=== PATIENT | female | born 1945 | race Caucasian/White ===

== ENCOUNTER → 2016-12-31 | Outpatient (CLI) | payer MEDICARE, BC ==
--- NOTE | 2016-12-31 15:33 | BD ---
EXAMINATION TYPE: MG DEXA axial skeleton. DATE OF EXAM: 12/31/2016 2:53 PM COMPARISON: not here CLINICAL HISTORY: age related osteoporosis. Postmenopausal female. Height: 5'2 Weight: 211 FRAX RISK QUESTIONS: Alcohol (3 or more units per day): no Family History (Parent hip fracture): no Glucocorticoids (More than 3mos): no (Ex: prednisone, prednisolone, methylprednisolone, dexamethasone, and hydrocortisone). History of Fracture in Adulthood: no Secondary Osteoporosis: 1. Type 1 Diabetes: no 2. Hyperthyroidism: no 3. Menopause before 45: yes 4. Malnutrition: no 5. Chronic liver disease: no Rheumatoid Arthritis: no Current Tobacco Use: no RISK FACTORS HISTORY OF: Surgery to Wrist (right/left): When: > 5 years ago Smoke tobacco: Active: Postmenopausal woman: Frequent falls: MEDICATIONS: Additional Medications: pain pills, blood pressure , cholesterol, Additional History: age related osteoporosis EXAM MEASUREMENTS: Bone mineral densitometry was performed using the Echelon System. Bone mineral density as measured about the Lumbar spine is: ----- L1-L4(G/cm2): 1.466 T Score Values are as follows: ----- L2: 2.5 ----- L3: 3.9 ----- L4: 2.3 ----- L1-L4: 2.4 Bone mineral density about the R hip (g/cm2): 0.845 Bone mineral density about the L hip (g/cm2): 0.806 T Score values are as follows: -----R Neck: -1.4 -----L Neck: -1.7 -----R Intertrochanter: -1.9 -----L Intertrochanter: -1.8 IMPRESSION: Osteopenia (T Score between -2.5 and -1 as noted by T score values: Rodger Hips There is slightly increased risk of fracture and the patient may be considered for treatment. Re-Screen 1-2 years. Bone density noted felt falsely elevated in the low back due to r eactive sclerosis at L2-L3 level. NOTE: T-SCORE=SD OF THE YOUNG ADULT MEAN.
--- NOTE | 2017-01-01 06:50 | MM ---
Reason for exam: screening (asymptomatic). Last mammogram was performed 15 years and 6 months ago. History: Patient is postmenopausal. Physical Findings: Nurse did not find any significant physical abnormalities on exam. MG 3D Screening Mammo W/Cad Bilateral CC and MLO view(s) were taken. No prior studies available for comparison. There are scattered fibroglandular densities. Finding: There are typically benign vascular, round calcifications in both breasts. There is a tiny chronic nodularity bilaterally. These results were verbally communicated with the patient and result sheet given to the patient on 12/31/16. ASSESSMENT: Benign, BI-RAD 2 RECOMMENDATION: Routine screening mammogram of both breasts in 1 year.
== END | disposition home or self-care (01) ==
LOC: RADMAMWWP 14:17
PROVIDERS: ATTEND Internal Medicine Geriatric Medicine
DX: Z12.31 Encounter for screening mammogram for malignant neoplasm of breast (principal); M81.0 Age-related osteoporosis without current pathological fracture; M85.88 Other specified disorders of bone density and structure, other site
CPT/HCPCS: 77080; 77063; G0202

== ENCOUNTER → 2017-06-11 | Outpatient (CLI) | payer MEDICARE, BC ==
[2017-06-11 12:18] LABS: Non-African American GFR(MDRD) 58 (>60 ml/min/1.73 sqM)
== END | disposition home or self-care (01) ==
LOC: LABWHC1 11:40
PROVIDERS: ATTEND Internal Medicine Geriatric Medicine
DX: Z01.812 Encounter for preprocedural laboratory examination (principal)
CPT/HCPCS: 36415; 82565

== ENCOUNTER → 2017-06-16 | Outpatient (CLI) | payer MEDICARE, BC ==
--- NOTE | 2017-06-17 01:55 | MR ---
EXAMINATION TYPE: MR lumbar spine wo/w con DATE OF EXAM: 06/16/2017 COMPARISON: 10/28/2015 HISTORY: loss of balance, pain, spinal stenosis TECHNIQUE: Multiplanar, multisequence images of the lumbar spine were acquired utilizing 10 mL intravenous Gadav ist gadolinium contrast. Lumbar vertebrae are fairly normal alignment. There is severe narrowing of the disc spaces throughout the lumbar spine. There is anterior and posterior endplate spur formation. There is developmentally adequate spinal canal and no bony spinal stenosis. No lumbar paraspinal mass. There is no compression fracture. There is heterogeneous signal pattern in the lumbar vertebral bodies consistent with varia ble fatty replacement. There is mild narrowing of the left side L5-S1 neural foramen. There is some h ypertrophic facet arthropathy throughout the lumbar spine. The contrast images show no pathologic enh ancement. There are very small posterior disc herniations throughout the lower thoracic and lumbar sp ine without significant encroachment on the neural elements. IMPRESSION: Multilevel spondylotic changes. No spinal stenosis. Multilevel facet arthropathy. No compression frac ture. No significant change compared to old exam.
== END | disposition home or self-care (01) ==
LOC: RADMRIMAIN 16:51
PROVIDERS: ATTEND Internal Medicine Geriatric Medicine
DX: M47.816 Spondylosis without myelopathy or radiculopathy, lumbar region (principal); M46.86 Other specified inflammatory spondylopathies, lumbar region
CPT/HCPCS: 72158; A9581

== ENCOUNTER → 2017-07-29 | Outpatient (CLI) | payer MEDICARE, BC ==
--- NOTE | 2017-07-29 13:22 | XR ---
EXAMINATION TYPE: XR ankle complete RT DATE OF EXAM: 07/29/2017 CLINICAL HISTORY: Ankle pain for 2 days TECHNIQUE: Frontal, lateral and oblique images of the right ankle are obtained. COMPARISON: None. FINDINGS: There is no acute fracture/dislocation evident in the right ankle. The ankle mortise appe ars within normal limits. The overlying soft tissue appears unremarkable. IMPRESSION: 1. No acute fracture. 2. Calcaneal heel spurs. 3. Follow-up exam can be performed 7-10 days from acute trauma for continued pain
--- NOTE | 2017-07-29 13:24 | XR ---
EXAMINATION TYPE: XR foot complete RT DATE OF EXAM: 07/29/2017 COMPARISON: NONE HISTORY: Pain TECHNIQUE: Three-view right foot FINDINGS: Soft tissue prominence over the proximal and mid lateral right no underlying fractures are identified. Remaining soft tissues are normal. Joint spaces are preserved. Calcaneal heel spurs are p resent. Follow-up exams can be performed 7-10 days acute trauma for continued pain. IMPRESSION: 1. No acute osseous abnormality. 2. Soft tissue swelling lateral right foot and proximal foot
== END ==
LOC: RADXRMAIN 12:47
PROVIDERS: ATTEND Internal Medicine Geriatric Medicine
DX: M77.31 Calcaneal spur, right foot (principal); M79.89 Other specified soft tissue disorders

== ENCOUNTER → 2017-12-16 | Outpatient (CLI) | payer MEDICARE, BC ==
--- NOTE | 2017-12-17 08:40 | XR ---
EXAMINATION TYPE: XR chest 2V DATE OF EXAM: 12/16/2017 COMPARISON: 08/02/2015 HISTORY: Cough and congestion TECHNIQUE: Frontal and lateral views of the chest are obtained. FINDINGS: There is no focal air space opacity, pleural effusion, or pneumothorax seen. There is per sistent right hemidiaphragm elevation unchanged from the prior of 2014. The cardiac silhouette size i s within normal limits. The osseous structures are intact. Mild multilevel degenerative changes of the thoracic spine are noted. Cholecystectomy clips are noted within the right upper quadrant. IMPRESSION: Chronic right hemidiaphragm elevation with no acute cardiopulmonary process.
== END | disposition home or self-care (01) ==
LOC: RADXRMAIN 17:06
PROVIDERS: ATTEND Internal Medicine Geriatric Medicine
DX: J98.6 Disorders of diaphragm (principal)
CPT/HCPCS: 71046

== ENCOUNTER 2019-10-10 10:12 | Emergency (ER) | payer OTHER, MEDICARE, BC ==
[2019-10-10 10:35] VITALS: TEMP 97.6
[2019-10-10] MEDS ORDERED: ATENOLOL 50 MG TAB PO STA (10:55)
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
[2019-10-10 12:38] VITALS: BP 190/98
[2019-10-10] MEDS ORDERED: ATENOLOL 12.5 MG TAB PO STA (12:53)
[2019-10-10 13:32] VITALS: PULSE 74; RESP 18
== END 2019-10-10 13:32 | disposition home or self-care (01) ==
LOC: EC 10:12
DX: Z04.1 Encounter for examination and observation following transport accident (principal); I10 Essential (primary) hypertension; E78.5 Hyperlipidemia, unspecified; Z79.899 Other long term (current) drug therapy; Z53.29 Procedure and treatment not carried out because of patient's decision for other reasons; V89.2XXA Person injured in unspecified motor-vehicle accident, traffic, initial encounter; Y92.89 Other specified places as the place of occurrence of the external cause
CPT/HCPCS: 99284

== ENCOUNTER 2020-03-31 16:24 | Inpatient (IN) | payer MEDICARE, BC ==
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
[2020-03-31 17:16] LABS: Basophils % (A) 0 %; Eosinophils % (A) 0 %; HCT 42.5 % (34.0-46.0); HGB 13.3 gm/dL (11.4-16.0); Hypochromasia Slight; Lymphocytes # (A) 1.3 k/uL (1.0-4.8); Lymphocytes % (A) 14 %; MCH 31.1 pg (25.0-35.0); MCHC 31.3 g/dL (31.0-37.0); MCV 99.4 fL (80.0-100.0); Mean Platelet Volume 9.2; Monocytes # (A) 0.4 k/uL (0-1.0); Monocytes % (A) 4 %; Neutrophils # (A) 7.8 k/uL (1.3-7.7); Neutrophils % (A) 81 %; Platelet Count 229 k/uL (150-450); RBC 4.28 m/uL (3.80-5.40); WBC 9.6 k/uL (3.8-10.6)
[2020-03-31 17:29] LABS: African American GFR (CKD) 58 (>60 ml/min/1.73 sqM); Alcohol <10 mg/dL; Anion Gap 13 mmol/L; Blood Urea Nitrogen 26 mg/dL (7-17); Calcium 10.3 mg/dL (8.4-10.2); Carbon Dioxide 19 mmol/L (22-30); Chloride 109 mmol/L (98-107); Glucose 173 mg/dL (74-99); Non-African American GFR(CKD) 50 (>60 ml/min/1.73 sqM); Potassium 3.9 mmol/L (3.5-5.1); Salicylate 8.6 mg/dL; Sodium 141 mmol/L (137-145)
[2020-03-31 17:54] LABS: Bacteria,Urine Rare /hpf; Hyaline Casts,Urine 106 /lpf (0-2); Mucus,Urine Rare /hpf; RBC,Urine 7 /hpf (0-5); Squamous Epithelial Cell,Urine <1 /hpf (0-4); WBC,Urine 2 /hpf (0-5)
[2020-03-31 18:03] LABS: Amphetamine Screen,Urine Not Detected (NotDetected); Barbiturate Screen,Urine Not Detected (NotDetected); Benzodiazepines Screen,Urine Detected (NotDetected); Cocaine Screen,Urine Not Detected (NotDetected); Color,Urine Yellow; Methadone Screen, Urine Not Detected (NotDetected); Opiate Screen,Urine Detected (NotDetected); Oxycodone Screen, Urine Detected (NotDetected); Phencyclidine Screen,Urine Not Detected (NotDetected); Tricyclic Antidepressant,Urine Not Detected (NotDetected); Urn Cannabinoid Scrn Not Detected (NotDetected)
[2020-03-31 18:04] LABS: Total Bilirubin 0.3 mg/dL (0.2-1.3)
[2020-03-31 18:04] LABS: Appearance,Urine Clear (Clear); Bilirubin,Urine 1+ (Negative); Glucose,Urine (UA) Negative (Negative); Ketones,Urine Negative (Negative); Protein,Urine 1+ (Negative); Specific Gravity,Urine 1.035 (1.001-1.035)
[2020-03-31 18:05] LABS: Blood,Urine Negative (Negative); Leukocyte Esterase,Urine Negative (Negative); Nitrite,Urine Negative (Negative); Urobilinogen,Urine <2.0 mg/dL (<2.0)
[2020-03-31 18:20] LABS: Prothrombin Time 10.3 sec (9.0-12.0)
[2020-03-31 18:24] LABS: Partial Thromboplastin Time 21.1 sec (22.0-30.0)
[2020-03-31] MEDS ORDERED: NALOXONE 0.4 MG/ML 1 ML VIAL IV PRN (18:25)
[2020-03-31] MEDS ORDERED: ACETYLCYSTEINE 6,000 MG/30 ML VIAL PO ONE (18:30)
[2020-03-31] MEDS: SODIUM CHLORIDE 0.9% 1,000 ML IV SCH (18:45)
[2020-03-31] MEDS: ACETYLCYSTEINE 6,000 MG/30 ML VIAL PO SCH (22:17)
[2020-04-01] MEDS: ACETYLCYSTEINE 6,000 MG/30 ML VIAL PO SCH ×6 (03:00→22:36)
[2020-04-01 06:11] LABS: Basophils % (A) 0 %; Eosinophils # (A) 0.1 k/uL (0-0.7); Eosinophils % (A) 0 %; HCT 39.3 % (34.0-46.0); HGB 12.7 gm/dL (11.4-16.0); Hypochromasia Slight; Lymphocytes # (A) 1.3 k/uL (1.0-4.8); Lymphocytes % (A) 13 %; MCH 32.2 pg (25.0-35.0); MCHC 32.3 g/dL (31.0-37.0); MCV 99.5 fL (80.0-100.0); Mean Platelet Volume 8.5; Monocytes # (A) 0.6 k/uL (0-1.0); Monocytes % (A) 6 %; Neutrophils # (A) 8.2 k/uL (1.3-7.7); Neutrophils % (A) 80 %; Platelet Count 232 k/uL (150-450); RBC 3.95 m/uL (3.80-5.40); WBC 10.3 k/uL (3.8-10.6)
[2020-04-01 06:22] LABS: INR 1.1 (<1.2); Prothrombin Time 11.3 sec (9.0-12.0)
[2020-04-01 06:25] LABS: Albumin 3.7 g/dL (3.5-5.0); Calcium 9.9 mg/dL (8.4-10.2); Potassium 3.7 mmol/L (3.5-5.1); Total Bilirubin 0.4 mg/dL (0.2-1.3); Total Protein 6.6 g/dL (6.3-8.2)
[2020-04-01] MEDS: SODIUM CHLORIDE 0.9% 1,000 ML IV SCH ×2 (06:30→22:38)
[2020-04-01] MEDS: METOPROLOL TARTRATE 50 MG TAB PO SCH ×2 (08:38→22:28)
[2020-04-01] MEDS: LISINOPRIL 10 MG TAB PO SCH ×2 (08:39→22:28)
[2020-04-01] MEDS: amLODIPine 5 MG TAB PO SCH (08:39)
[2020-04-01] MEDS: APIXABAN 5 MG TAB PO SCH ×2 (08:43→22:27)
[2020-04-01] MEDS ORDERED: PANTOPRAZOLE 40 MG/10 ML VIAL IVP SCH (09:00)
[2020-04-01] MEDS: ONDANSETRON 4 MG/2 ML VIAL IVP PRN ×2 (09:21→19:55)
--- NOTE | 2020-04-01 11:23 | P.HPIM ---
History of Present Illness H&P Date: 04/01/20 Chief Complaint: depression History of Present Illness This is a 74-year-old female one of Dr. Morales with a previous medical history significant for hypertension and hypertensive cardiovascular disease, hyperlipidemia, acute ischemic cerebral vascular accident in the distribution of the right middle cerebral artery with left-sided weakness status post tPA, with almost complete resolution of the symptoms in October 2019. During that hospitalization, she also developed new onset atrial fibrillation and started on eliquis. Patient states that she took pills. She took greater than 15 Tylenol tablets. She states she was hoping that she would fall asleep and not wake up. She states I can't take it anymore. At this time she states she was not suicidal but was yesterday. She called for help and was brought into the hospital for evaluation. Patient does state that her family abandoned her and took everything that she had. She does not have power of attorney recruiter or guardian. Vital signs were stable, EKG sinus rhythm. Sodium 141, potassium 3.9, chloride 109, CO2 19. Initial total bilirubin 0.3, AST 42, ALT 38, alkaline phosphatase 90. Salicylate level 8.6, acetaminophen level 169 serum alcohol level less than 10. Urine drug screen detected opiates, oxycodone, benzodiazepines. Urinalysis was clear with nitrate and leukoesterase negative. Patient was given 1 dose of Mucomyst [facility] air tool operator is at the bedside. Consult in place for psychiatry. Patient does have a history of divorce from her approximate 4 years ago and has not had a relationship with her children since that time. Review of Systems Constitutional: No fever, no chills, no night sweats. No weight change. No weakness, fatigue or lethargy. No daytime sleepiness. EENT: No headache. No blurred vision or double vision, no loss of vision. No loss of Hearing, no ringing in the ears, no dizziness. No nasal drainage or congestion. No epistaxis. No sore throat. Lungs: No shortness of breath, cough, no sputum production. No wheezing. Cardiovascular: No chest pain, no lower extremity edema. No palpitations. No paroxysmal nocturnal dyspnea. No orthopnea. No lightheadedness or dizziness. No syncopal episodes. Abdominal: No abdominal pain. No nausea, vomiting. No diarrhea. No constipation. No bloody or tarry stools.. No loss of appetite. Genitourinary: No dysuria, increased frequency, urgency. No urinary retention. Musculoskeletal: No myalgias. No muscle weakness, no gait dysfunction, no frequent falls. No back pain. No neck pain. Integumentary: No wounds, no lesions. No rash or pruritus. No unusual br uising. No change in hair or nails. Neurologic: No aphasia. No facial droop. No change in mentation. No head injury. No headache. No paralysis. No paresthesia. Psychiatric: Reports depression. No anxiety. No mood swings. Denies cyanosis vital ideation at the time of evaluation. Endocrine: No abnormal blood sugars. No weight change. No excessive sweating or thirst. No cold intolerance. Physical Examination Gen: This is a 74-year-old female. She is resting in bed and appears to be comfortable, no acute distress. air tool operator is at bedside HEENT: Head is atraumatic, normocephalic. Pupils equal, round. Sclerae is anicteric. NECK: Supple. No JVD. No lymphadenopathy. No thyromegaly. LUNGS: Clear to auscultation. No wheezes or rhonchi. No intercostal retractions. HEART: Regular rate and rhythm. No murmur. ABDOMEN: Soft. Bowel sounds are present. No masses. No tenderness. EXTREMITIES: No pedal edema. No calf tenderness. NEUROLOGICAL: Patient is awake, alert and oriented x3. Cranial nerves 2 through 12 are grossly intact. Assessment and Plan 1. Recurrent depression with suicide attempt. Continue safety companion, psychiatry consult, social work consult for discharge planning. Patient may require geriatric psych unit. 2. Tylenol overdose with mild elevation in liver function tests. She is status post 1 dose of Mucomyst. Consult with GI, monitor liver tests. Hold statin for now. 3. History of acute ischemic CVA, stable. Continue eliquis. 4. Hypertension hypertensive cardiovascular disease. Continue Lopressor 50 mg twice daily, lisinopril 10 mg twice daily, Norvasc 5 mg daily. 5. Paroxysmal atrial fibrillation. Continue eliquis 5 mg twice daily, Lopressor 50 mg twice daily. 6. Gastroesophageal reflux disease. Continue Protonix. 7. DVT prophylaxis. Eliquis. 8. COVID-19 infection not present. Patient will be admitted to the hospital for a minimum of 2 night stay. Discharge plan: Transfer to mental health unit or geriatric psychiatric Center. Continue safety center. Impression and plan of care have been directed as dictated by the signing physician. Elsy Spangler nurse practitioner acting as scribe for signing physician. Past Medical History Past Medical History: CVA/TIA, Hyperlipidemia, Hypertension History of Any Multi-Drug Resistant Organisms: None Reported Past Surgical History: Appendectomy, Back Surgery, Cholecystectomy, Orthopedic Surgery Additional Past Surgical History / Comment(s): Bilateral knee replacement. Past Anesthesia/Blood Transfusion Reactions: No Reported Reaction Past Psychological History: No Psychological Hx Reported, Depression Additional Psychological History / Comment(s): No past history of depression however pt currently admitted for suicide attempt. Smoking Status: Never smoker Past Alcohol Use History: None Reported Past Drug Use History: None Reported - Past Family History Mother Family Medical History: No Reported History Additional Family Medical History / Comment(s): Mother at age 85 from old age. Father Family Medical History: Myocardial Infarction (MO) Additional Family Medical History / Comment(s): Father at age 59 from myocardial infarction. Brother(s) Family Medical History: No Reported History Additional Family Medical History / Comment(s): Patient has a brother with history of back surgery. Sister(s) Family Medical History: Osteoarthritis (OA) Additional Family Medical History / Comment(s): Patient has one sister with osteoarthritis. Patient does not claim any children because they stole things from her divorce her from her while she was at extended care facility last year. Medications and Allergies Home Medications Medication Instructions Recorded Confirmed Type Pravastatin Sodium [Pravachol] 40 mg PO DAILY 08/02/15 03/31/20 History Apixaban [Eliquis] 5 mg PO BID #60 tab 10/23/19 03/31/20 Rx Lisinopril [Zestril] 10 mg PO BID #60 tab 10/23/19 03/31/20 Rx amLODIPine [Norvasc] 5 mg PO DAILY #30 tab 10/23/19 03/31/20 Rx Metoprolol Tartrate [Lopressor] 50 mg PO BID 03/31/20 03/31/20 History Allergies Allergy/AdvReac Type Severity Reaction Status Date / Time adhesive tape Allergy Rash/Hives Verified 03/31/20 19:47 Physical Exam Vitals: Vital Signs Temp Pulse Pulse Resp BP BP Pulse Ox 04/01/20 05:00 97.8 F 69 18 169/82 99 04/01/20 01:52 89 139/66 97 03/31/20 20:45 97.1 F L 73 18 120/53 96 03/31/20 19:00 72 16 120/63 95 03/31/20 18:38 70 16 104/47 95 03/31/20 17:38 67 16 117/48 95 03/31/20 16:38 16 95 03/31/20 16:31 97.9 F 74 20 123/58 95 Intake and Output 03/31/20 04/01/20 04/01/20 22:59 06:59 14:59 Intake Total 0 200 Output Total 200 Balance 0 0 Intake: Oral 0 200 Output: Emesis 200 Other: # Voids 0 1 Weight 82 kg Results CBC & Chem 7: 04/01/20 05:56 04/01/20 05:56 Labs: Abnormal Lab Results - Last 24 Hours (Table) 03/31/20 03/31/20 03/31/20 Range/Units 16:40 16:40 16:40 Neutrophils # 7.8 H (1.3-7.7) k/uL APTT 21.1 L (22.0-30.0) sec Chloride 109 H (98-107) mmol/L Carbon Dioxide 19 L (22-30) mmol/L BUN 26 H (7-17) mg/dL Creatinine 1.10 H (0.52-1.04) mg/dL Glucose 173 H (74-99) mg/dL Calcium 10.3 H (8.4-10.2) mg/dL AST (14-36) U/L ALT (4-34) U/L Urine Bilirubin (Negative) Urine RBC (0-5) /hpf Urine Bacteria (None) /hpf Hyaline Casts (0-2) /lpf Urine Mucus (None) /hpf Urine Opiates Screen (NotDetected) Ur Oxycodone Screen (NotDetected) Acetaminophen 169.0 H* ug/mL U Benzodiazepines Scrn (NotDetected) 03/31/20 03/31/20 04/01/20 Range/Units 16:40 17:00 05:56 Neutrophils # (1.3-7.7) k/uL APTT (22.0-30.0) sec Chloride 111 H (98-107) mmol/L Carbon Dioxide (22-30) mmol/L BUN 29 H (7-17) mg/dL Creatinine (0.52-1.04) mg/dL Glucose 122 H (74-99) mg/dL Calcium (8.4-10.2) mg/dL AST 42 H (14-36) U/L ALT 38 H 42 H (4-34) U/L Urine Bilirubin 1+ H (Negative) Urine RBC 7 H (0-5) /hpf Urine Bacteria Rare H (None) /hpf Hyaline Casts 106 H (0-2) /lpf Urine Mucus Rare H (None) /hpf Urine Opiates Screen Detected H (NotDetected) Ur Oxycodone Screen Detected H (NotDetected) Acetaminophen ug/mL U Benzodiazepines Scrn Detected H (NotDetected) 04/01/20 Range/Units 05:56 Neutrophils # 8.2 H (1.3-7.7) k/uL APTT (22.0-30.0) sec Chloride (98-107) mmol/L Carbon Dioxide (22-30) mmol/L BUN (7-17) mg/dL Creatinine (0.52-1.04) mg/dL Glucose (74-99) mg/dL Calcium (8.4-10.2) mg/dL AST (14-36) U/L ALT (4-34) U/L Urine Bilirubin (Negative) Urine RBC (0-5) /hpf Urine Bacteria (None) /hpf Hyaline Casts (0-2) /lpf Urine Mucus (None) /hpf Urine Opiates Screen (NotDetected) Ur Oxycodone Screen (NotDetected) Acetaminophen ug/mL U Benzodiazepines Scrn (NotDetected) Thrombosis Risk Factor Assmnt - DVT/VTE Prophylaxis DVT/VTE Prophylaxis: Pharmacologic Prophylaxis ordered - Choose All That Apply Any of the Below Risk Factors Present?: Yes Each Factor Represents 1 point: Acute MO Each Risk Factor Represents 2 Points: Age 61-74 years Other congenital or acquired thrombophilia - If yes, enter type in comment: No Thrombosis Risk Factor Assessment Total Risk Factor Score: 3 Thrombosis Risk Factor Assessment Level: Moderate Risk
[2020-04-01] MEDS ORDERED: MELATONIN 5 MG TABLET PO PRN (13:56)
--- NOTE | 2020-04-01 13:56 | P.CN ---
Psychiatric Consult - . Consult date: 04/01/20 Consult:: 04/01/20 13:49 IDENTIFYING DATA: This patient is a 73-year-old female currently lives alone in a house is has 2 kids were strangers to her and collects Social Security. HISTORY OF PRESENT ILLNESS: The patient presented to the hospital through the ER with complaints of depression and suicidal thoughts. Patient did endorse poor sleep as well. She later on admitted in the emergency room that she had taken "extra pills" in the morning and stated there is approximately 15 [place] tablets. Patient's acetaminophen level was 169, UDS was positive for opiates, oxycodone and benzodiazepines and patient also had elevated creatinine and LFTs initially however have been improving since admission. Psychiatry is consulted for overdose. Patient was seen lying down in the bed with a sitter at her side and was agreeable to speak to health underwriter. Patient states that "everything came crashing down on me" and spoke about feeling overwhelmed with several things going on in her life. She states that "I did a stupid thing" referring to her suicide attempt. She states that she made a "deal with God" about saving a child who got Mathis virus and trading their life in for hers. She claims that she overdosed on the medications and laid down to go to sleep however soon after called 911. She states that she has been dealing with stressors including getting a message from the [employer] about possible fraud, spoke about financial stressors about her "messing up my checking account and getting lots of bills". She also spoke about having a poor relationship with her kids and also her who filed for divorce 2 years ago. She states that "my family has thrown me away". She endorsed significant depression and anxiety. She states that she has poor sleep and only sleeps "minutes at a time". She admits to poor appetite and fair concentration and guilt. At this time patient denies any suicidal or homical ideations, intent or plan. Patient denies any auditory, visual hallucinations and denies any paranoia or delusions. Patients admits to using no recreational drugs and denies any cigarette use. PAST PSYCHIATRIC HISTORY: Patient has a a history of in an anxiety. Patient denies being on any psychiatric medications. Patient denies any previous psychiatric hospitalizations. Patient denies any psychiatric outpatient follow- up. Patient denies any history of suicide attempts in the past. PAST MEDICAL HISTORY: CVA/TIA, hyperlipidemia, hypertension.. ALLERGIES: as per EMR. CHEMICAL DEPENDENCY HISTORY: as per HPI. FAMILY PSYCHIATRIC/SUBSTANCE USE HISTORY: denies SOCIAL HISTORY: Patient was born and raised in [facility] and claims that she completed high school and did some college taking business classes. 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 She states that she has 2 kids were strangers to her is currently and lives in a house alone and collects Social Security. MENTAL STATUS EXAM: General Appearance: Patient appears to be stated age is alert, argumentative yet attempts to cooperate. Patient appears to have fair hygiene and grooming wearing hospital gown with poor eye contact. Behavior: Patient is calmly lying in bed without any agitated behavior. Argumentative yet attempts to cooperate. Speech: Patient's speech is fluent and nonpressured. Soft tone. Mood/Affect: Patient reports their mood is "depressed and anxious", affect is congruent Suicidality/Homicidality: Patient denies having any suicidal or homicidal ideation intent or plan. Perceptions: Patient denies any visual hallucinations and denies any auditory hallucinations Though content/process: There is no evidence of any delusional thought content and thought process is linear and goal-directed. Rambles at times. Memory and concentration: AOX3, grossly intact for the purposes of this session. Can spell "WORLD" backwards Judgment and insight: poor IMPRESSIONS: Major depressive disorder, without psychotic features Anxiety disorder unspecified PLAN: -At this time patient DOES meet criteria for inpatient psychiatric admission. -Would recommend the following medication changes/additions: Patient is agreeable to start Lexapro 5 mg daily for mood/anxiety, Remeron 7.5 mg daily at bedtime for mood/appetite/sleep. We'll consider adding on melatonin if needed. -Continue 1:1 sitter for safety -Cannot leave AMA at this time. Patient will need a petition and certification if attempting to leave AMA. -Will continue to follow along -When medically stable, patient is eligible for transfer to a [facility] psych bed when available. chore worker to look into transfer at this time. -Please contact with any questions. Discussed this plan with patient's nurse.
[2020-04-01] MEDS: ESCITALOPRAM 5 MG TAB PO SCH (18:19)
[2020-04-01 19:03] LABS: Albumin 3.8 g/dL (3.5-5.0); Calcium 9.7 mg/dL (8.4-10.2); Potassium 3.4 mmol/L (3.5-5.1); Total Bilirubin 0.4 mg/dL (0.2-1.3); Total Protein 6.6 g/dL (6.3-8.2)
[2020-04-01] MEDS ORDERED: MIRTAZAPINE 15 MG TAB PO SCH (21:00)
[2020-04-01] MEDS: PANTOPRAZOLE 40 MG TABLET PO SCH (22:28)
--- NOTE | 2020-04-02 01:28 | CONS ---
CONSULTATION DATE OF DICTATION: 04/01/2020 REASON FOR CONSULTATION: Tylenol overdose. HISTORY OF PRESENT ILLNESS: The patient is a 74-year-old pleasant white female with history of hypertension, hyperlipidemia, CVA in the past with left-sided weakness, was hospitalized because of acute Tylenol overdose. She took approximately 15 to 20 [place] tablets as she was feeling somewhat depressed and suicidal. She was brought to the emergency room and her Tylenol level, acetaminophen level was 116. She was started on Mucomyst. The serum transaminases at the time of admission to the hospital were within normal limits. The patient denies any prior history of chronic liver disease. No history of jaundice or hepatitis in the past. No history of alcohol abuse. She denies any abdominal pain. No nausea, vomiting. On a regular diet tolerating well. Psychiatry has been consulted because of depression. PAST MEDICAL HISTORY: Her past medical history is significant for hypertension, hyperlipidemia, atrial fibrillation on Eliquis, history of CVA in October of 2019, recovered well with no deficits. PAST SURGICAL HISTORY: Appendectomy, back surgery, cholecystectomy, bilateral knee replacement. MEDICATIONS: Medications at home include Pravachol, Eliquis, Zestril, Norvasc, and Lopressor. ALLERGIES: None. SOCIAL HISTORY: No smoking. No alcohol use. FAMILY HISTORY: Sister has osteoarthritis. Mother of old age and father had coronary artery disease. REVIEW OF SYSTEMS: CARDIOPULMONARY: She denies any chest pain or shortness of breath. GENITOURINARY: No dysuria or hematuria. MUSCULOSKELETAL: Unremarkable. SKIN: Unremarkable. ENDOCRINE: Unremarkable. PSYCHIATRIC: Depression. Psychiatry has been consulted. NEUROLOGY: History of stroke in October of 2019 with no residual deficits. ENT/VISION: Unremarkable. CONSTITUTIONAL: No recent weight loss. No fever, chills, night sweats. GI: As mentioned above. PHYSICAL EXAMINATION: She appears comfortable. No apparent distress. Vital signs are stable. Blood pressure 119/63, pulse rate 59, temperature 98.4. HEENT EXAMINATION: Unremarkable. Conjunctivae pink. Sclerae anicteric. Oral cavity no lesions. NECK: No JVD or lymph node enlargement. CHEST: Clear to auscultation. HEART: Regular rate and rhythm. ABDOMEN: Soft. Bowel sounds are positive. No organomegaly. EXTREMITIES: No pedal edema. SKIN: No rashes. NEUROLOGIC: Alert and oriented x3. No focal deficits. LABS: WBC 10.3, hemoglobin 12.7, platelets normal. Basic metabolic panel is within normal limits. AST and ALT yesterday were 42 and 38 respectively. This morning they were 115 and 97 respectively. T-bilirubin and alkaline phosphatase are within normal limits. INR is 1.1. BUN and creatinine at 25 and 0.82, respectively. Serum acetaminophen level was 169 and repeat acetaminophen level is 108. IMPRESSION: 1. Acute acetaminophen overdose. The patient has taken at least 20 to 30 tablets of [place] yesterday. Her serum acetaminophen level at the time of admission to the hospital was 169, was started on oral Mucomyst. Acetaminophen level has dropped to 108 this morning. 2. Mild elevation of serum transaminases at the time of admission to the hospital which are slightly increased today. INR is normal. No evidence of coagulopathy. 3. History of cerebrovascular accident in October of 2019. 4. History of atrial fibrillation on Eliquis. 5. History of anxiety, depression. RECOMMENDATION: 1. Monitor LFTs q.12 hours including INR. 2. Continue oral Mucomyst. 3. Agree with psychiatric consultation. 4. Repeat labs in the morning. We will follow with you closely. Thank you for this consultation. MMODL / IJN: [id number] /
[2020-04-02] MEDS: ACETYLCYSTEINE 6,000 MG/30 ML VIAL PO SCH ×5 (02:56→20:56)
[2020-04-02] MEDS ORDERED: PANTOPRAZOLE 40 MG TABLET PO SCH (07:30)
[2020-04-02 08:12] LABS: ALT 543 U/L (4-34); AST 547 U/L (14-36); Acetaminophen <10.0 ug/mL; African American GFR (CKD) 69 (>60 ml/min/1.73 sqM); Albumin 3.1 g/dL (3.5-5.0); Alkaline Phosphatase 82 U/L (38-126); Anion Gap 7 mmol/L; Blood Urea Nitrogen 23 mg/dL (7-17); Calcium 9.6 mg/dL (8.4-10.2); Carbon Dioxide 22 mmol/L (22-30); Chloride 110 mmol/L (98-107); Glucose 90 mg/dL (74-99); Non-African American GFR(CKD) 60 (>60 ml/min/1.73 sqM); Potassium 3.6 mmol/L (3.5-5.1); Sodium 139 mmol/L (137-145); Total Protein 5.9 g/dL (6.3-8.2)
[2020-04-02] MEDS: PANTOPRAZOLE 40 MG TABLET PO SCH (09:45)
[2020-04-02] MEDS: ESCITALOPRAM 5 MG TAB PO SCH (09:45)
[2020-04-02] MEDS: METOPROLOL TARTRATE 50 MG TAB PO SCH ×2 (09:45→20:46)
[2020-04-02] MEDS: LISINOPRIL 10 MG TAB PO SCH ×2 (09:45→20:46)
[2020-04-02] MEDS: APIXABAN 5 MG TAB PO SCH ×2 (09:45→20:46)
[2020-04-02] MEDS: amLODIPine 5 MG TAB PO SCH (09:45)
--- NOTE | 2020-04-02 12:20 | P.PN ---
Subjective Progress Note Date: 04/02/20 This is a 74-year-old female one of Dr. Morales with a previous medical history significant for hypertension and hypertensive cardiovascular disease, hyperlipidemia, acute ischemic cerebral vascular accident in the distribution of the right middle cerebral artery with left-sided weakness status post tPA, with almost complete resolution of the symptoms in October 2019. During that hospitalization, she also developed new onset atrial fibrillation and started on eliquis. Patient states that she took pills. She took greater than 15 Tylenol tablets. She states she was hoping that she would fall asleep and not wake up. She states I can't take it anymore. At this time she states she was not suicidal but was yesterday. She called for help and was brought into the hospital for evaluation. Patient does state that her family abandoned her and took everything that she had. She does not have power of prosecuting attorney or guardian. Vital signs were stable, EKG sinus rhythm. Sodium 141, potassium 3.9, chloride 109, CO2 19. Initial total bilirubin 0.3, AST 42, ALT 38, alkaline phosphatase 90. Salicylate level 8.6, acetaminophen level 169 serum alcohol level less than 10. Urine drug screen detected opiates, oxycodone, benzodiazepines. Urinalysis was clear with nitrate and leukoesterase negative. Patient was given 1 dose of Mucomyst and [facility]. parts sales representative is at the bedside. Consult in place for psychiatry. Patient does have a history of divorce from her approximate 4 years ago and has not had a relationship with her children since that time. 04/02: The patient has been seen by psychiatry with recommendations for geriatric inpatient and social work is following for this. Patient is to be continued on senior safety management consultant. Patient cannot leave AMA and will need a petition insert is attempting to leave AMA. Patient denies any new complaints today. She does have elevation of her liver function tests with total bilirubin 1, AST 547, ALT 543, alkaline phosphatase 82. Repeat acetaminophen level this morning is less than 10. Patient has also been seen by GI with plan to continue to monitor liver function tests including INR, continue oral Mucomyst which we have discontinued this morning due to Tylenol level being normal. Anticipate patient may be ready for discharge and [facility]. Patient has been afebrile, heart rate 59, blood pressure 96/56, pulse ox 95% on room air. Review of Systems Constitutional: No fever, no chills, no night sweats. No weight change. No weakness, fatigue or lethargy. No daytime sleepiness. Patient more cooperative today. EENT: No headache. No blurred vision or double vision, no loss of vision. No loss of Hearing, no ringing in the ears, no dizziness. No nasal drainage or congestion. No epistaxis. No sore throat. Lungs: No shortness of breath, cough, no sputum production. No wheezing. Cardiovascular: No chest pain, no lower extremity edema. No palpitations. No paroxysmal nocturnal dyspnea. No orthopnea. No lightheadedness or dizziness. No syncopal episodes. Abdominal: No abdominal pain. No nausea, vomiting. No diarrhea. No constipation. No bloody or tarry stools.. No loss of appetite. Genitourinary: No dysuria, increased frequency, urgency. No urinary retention. Musculoskeletal: No myalgias. No muscle weakness, no gait dysfunction, no frequent falls. No back pain. No neck pain. Integumentary: No wounds, no lesions. No rash or pruritus. No unusual bruising. No change in hair or nails. Neurologic: No aphasia. No facial droop. No change in mentation. No head injury. No headache. No paralysis. No paresthesia. Psychiatric: Reports depression. No anxiety. No mood swings. Denies cyanosis vital ideation at the time of evaluation. Endocrine: No abnormal blood sugars. No weight change. No excessive sweating or thirst. No cold intolerance. Physical Examination Gen: This is a 74-year-old female. She is resting in bed and appears to be comfortable, no acute distress. parts sales representative is at bedside HEENT: Head is atraumatic, normocephalic. Pupils equal, round. Sclerae is anicteric. NECK: Supple. No JVD. No lymphadenopathy. No thyromegaly. LUNGS: Clear to auscultation. No wheezes or rhonchi. No intercostal retractions. HEART: Regular rate and rhythm. No murmur. ABDOMEN: Soft. Bowel sounds are present. No masses. No tenderness. EXTREMITIES: No pedal edema. No calf tenderness. NEUROLOGICAL: Patient is awake, alert and oriented x3. Cranial nerves 2 through 12 are grossly intact. Assessment and Plan 1. Recurrent depression with suicide attempt. Continue senior safety management consultant, psychiatry consult appreciated, social work consult for discharge planning to [facility]. 2. Tylenol overdose with elevation in liver function tests. Mucomyst discontinued this morning. Consult with GI appreciated, monitor liver tests. Hold statin for now. 3. History of acute ischemic CVA, stable. Continue eliquis. 4. Hypertension hypertensive cardiovascular disease. Continue Lopressor 50 mg twice daily, lisinopril 10 mg twice daily, Norvasc 5 mg daily. 5. Paroxysmal atrial fibrillation. Continue eliquis 5 mg twice daily, Lopressor 50 mg twice daily. 6. Gastroesophageal reflux disease. Continue Protonix. 7. DVT prophylaxis. Eliquis. 8. COVID-19 infection not present. Discharge plan: Transfer to [facility]iatric [facility]. Continue senior safety management consultant. Impression and plan of care have been directed as dictated by the signing physician. Elsy Spangler nurse practitioner acting as scribe for signing physician. Objective - Vital Signs Vital signs: Vital Signs Temp 99.1 F 04/02/20 05:00 Pulse 59 L 04/02/20 05:00 Resp 18 04/02/20 05:00 BP 96/56 04/02/20 05:00 Pulse Ox 95 04/02/20 05:00 Intake & Output 04/01/20 04/02/20 04/02/20 18:59 06:59 18:59 Intake Total 600 1700 Balance 600 1700 Intake: Intake, IV Titration 600 900 Amount Sodium Chloride 0.9% 1, 600 900 000 ml @ 75 mls/hr IV . [id number] [facility] Rx#:[id number] Oral 800 Other: Voiding Method Bedside Commode # Voids 3 1 - Labs CBC & Chem 7: 04/01/20 05:56 04/02/20 07:31 Labs: Abnormal Lab Results - Last 24 Hours (Table) 04/01/20 04/01/20 04/02/20 Range/Units 05:56 18:32 07:31 Potassium 3.4 L (3.5-5.1) mmol/L Chloride 110 H (98-107) mmol/L Carbon Dioxide 20 L (22-30) mmol/L BUN 25 H 23 H (7-17) mg/dL Glucose 113 H (74-99) mg/dL AST 115 H 547 H (14-36) U/L ALT 97 H 543 H (4-34) U/L Total Protein 5.9 L (6.3-8.2) g/dL Albumin 3.1 L (3.5-5.0) g/dL Acetaminophen 108.6 H* ug/mL
--- NOTE | 2020-04-02 13:11 | P.PN ---
Progress Note - Text Progress Note Date: 04/02/20 Interval History: Patient was seen today for psychiatric follow-up related to her depression and suicide attempt. Patient was laying in her bed with the sitter at her side and was directable and agreeable to speak to report writer today. Patient continues to minimize her suicide attempt and states that "it was an accident and I was overwhelmed". She states that she is feeling mildly better today with regards to her mood and was appreciative of her medications. She states that she was able to sleep approximately 2 hours last night on the Remeron however states that "it's not enough". She denied any anxiety at this time. She states that she would like to go home soon. She claims that she spoke to her friend over the phone who knows she is in the hospital to wish her well and states that she has not spoken pending for family members as they "cut me off". Patient was agreeable to continue on with the medications and have them adjusted. She admits to mildly improved appetite. At this time patient denies any suicidal or homical ideations, intent or plan. Patient denies any auditory, visual hallucinations and denies any paranoia or delusions. Patient denies any side effects from the medications and has been compliant with meds. Mental Status Exam: General Appearance: Patient appears to be stated age is alert, less irritable and argumentative today and attempts to cooperate. Patient appears to have fair hygiene and grooming wearing hospital gown with poor eye contact. Behavior: Patient is calmly lying in bed without any agitated behavior. Less irritable and argumentative today. Speech: Patient's speech is fluent and nonpressured. Soft tone. Mood/Affect: Patient reports their mood is "a bit better", affect is congruent Suicidality/Homicidality: Patient denies having any suicidal or homicidal ideation intent or plan. Perceptions: Patient denies any visual hallucinations and denies any auditory hallucinations Though content/process: There is no evidence of any delusional thought content and thought process is linear and goal-directed. Rambles at times. Depressive thoughts. Memory and concentration: AOX3, grossly intact for the purposes of this session Judgment and insight: poor, mildly improving. 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 Packets were faxed and currently pending. -Would recommend the following medication changes/additions: Increased Lexapro 10 mg daily for mood/anxiety for tomorrow, discontinued Remeron as this may have caused the increase in patient's LFTs overnight. Continue to follow LFTs daily and awaiting GI recommendations. Melatonin 5 mg scheduled daily at bedtime for sleep. -Continue 1:1 sitter for safety -Cannot leave AMA at this time. Patient will need a petition and certification if attempting to leave AMA. -Will continue to follow along -Please contact with any questions. Discussed this plan with patient's nurse.
--- NOTE | 2020-04-02 15:59 | PN ---
PROGRESS NOTE DATE OF DICTATION: 04/02/2020 This patient is a 74-year-old pleasant white female admitted to the hospital with Tylenol overdose. Yesterday when she was admitted to the hospital, her serum transaminases were within normal limits, but today her serum ALT and AST have significantly jumped up to 547 and 543. Acetaminophen level, which was 169 at the time of admission to the hospital, was less than 10 today. She received 7 doses of oral Mucomyst and was discontinued because acetaminophen was normal today. She denies any symptoms. No abdominal pain. No altered mental status. PHYSICAL EXAMINATION: Blood pressure is 82/48, pulse rate 57, temperature 99.2. HEENT examination unremarkable. Conjunctivae pink. Sclerae anicteric. Oral cavity no lesions. NECK: No JVD or lymph node enlargement. CHEST: Clear to auscultation. HEART: Regular rate and rhythm. ABDOMEN: Soft. Bowel sounds are positive. No organomegaly. EXTREMITIES: No pedal edema. SKIN: No rashes. NEUROLOGIC: Alert and oriented x3. No focal deficits. LABS: Labs from today show AST 547, ALT 543. INR was not done. Yesterday INR was 1.1. IMPRESSION: 1. Acute hepatitis secondary to Tylenol toxicity. Serum transaminases were normal at the time of admission to the hospital. The patient received a total of 7 doses of oral Mucomyst and was discontinued this morning. 2. Tylenol overdose. 3. History of depression. RECOMMENDATIONS: 1. Restart oral Mucomyst and continue and finish doses. 2. Monitor LFTs twice daily, including INR. 3. Avoid hepatotoxic medications. 4. Will follow with you closely. Thank you for this consultation. MMODL / IJN: [id number] /
[2020-04-02] MEDS ORDERED: ACETYLCYSTEINE 6,000 MG/30 ML VIAL PO SCH (16:00)
[2020-04-02] MEDS: SODIUM CHLORIDE 0.9% 1,000 ML IV SCH ×2 (16:34→22:55)
[2020-04-02 18:38] LABS: INR 1.2 (<1.2); Prothrombin Time 12.4 sec (9.0-12.0)
[2020-04-02 18:45] LABS: ALT 492 U/L (4-34); AST 407 U/L (14-36)
[2020-04-02] MEDS: MELATONIN 5 MG TABLET PO SCH (20:49)
[2020-04-03] MEDS: ACETYLCYSTEINE 6,000 MG/30 ML VIAL PO SCH ×7 (00:08→23:50)
[2020-04-03 08:06] LABS: HGB 11.4 gm/dL (11.4-16.0); Hypochromasia Slight; MCH 32.8 pg (25.0-35.0); MCHC 32.5 g/dL (31.0-37.0); Macrocytosis Slight; Mean Platelet Volume 8.6; Platelet Count 184 k/uL (150-450); RBC 3.47 m/uL (3.80-5.40); RDW 14.1 % (11.5-15.5); WBC 11.8 k/uL (3.8-10.6)
[2020-04-03 08:13] LABS: INR 1.1 (<1.2); Prothrombin Time 11.3 sec (9.0-12.0)
[2020-04-03 08:17] LABS: Albumin 2.7 g/dL (3.5-5.0); Calcium 9.2 mg/dL (8.4-10.2); Potassium 3.2 mmol/L (3.5-5.1); Total Bilirubin 1.1 mg/dL (0.2-1.3); Total Protein 5.2 g/dL (6.3-8.2)
[2020-04-03] MEDS: ESCITALOPRAM 10 MG TAB PO SCH (08:52)
[2020-04-03] MEDS: METOPROLOL TARTRATE 50 MG TAB PO SCH ×2 (08:52→21:45)
[2020-04-03] MEDS: APIXABAN 5 MG TAB PO SCH ×2 (08:52→21:45)
[2020-04-03] MEDS: PANTOPRAZOLE 40 MG TABLET PO SCH (08:52)
[2020-04-03] MEDS: amLODIPine 5 MG TAB PO SCH (08:53)
[2020-04-03] MEDS: LISINOPRIL 10 MG TAB PO SCH ×2 (08:53→21:45)
--- NOTE | 2020-04-03 13:02 | P.PN ---
Progress Note - Text Progress Note Date: 04/03/20 Interval History: Patient was seen today for psychiatric follow-up related to her depression and suicide attempt. Patient was laying in her bed with the sitter at her side and was directable and agreeable to speak to administrative underwriter today. She states that she is feeling mildly better today with regards to her mood. Patient continues to question administrative underwriter about her condition and when she can be discharged home. She was somewhat argumentative about her labs results for her liver function tests and believes that they are improving when her LFTs were in fact fluctuating. Patient states that she is taking the Mucomyst as prescribed and also the Lexapro and melatonin. She states that she was able to sleep better last night and did not have any overnight complaints. She denied any anxiety at this time. She admits to mildly improved appetite. At this time patient denies any suicidal or homical ideations, intent or plan. Patient denies any auditory, visual hallucinations and denies any paranoia or delusions. Patient denies any side effects from the medications and has been compliant with meds. Mental Status Exam: General Appearance: Patient appears to be stated age is alert, less irritable and argumentative today. Patient appears to have fair hygiene and grooming wearing hospital gown with improving eye contact. Behavior: Patient is calmly lying in bed without any agitated behavior. Less irritable and argumentative today. Speech: Patient's speech is fluent and nonpressured. Soft tone. Mood/Affect: Patient reports their mood is "better", affect is congruent Suicidality/Homicidality: Patient denies having any suicidal or homicidal ideation intent or plan. Perceptions: Patient denies any visual hallucinations and denies any auditory hallucinations Though content/process: There is no evidence of any delusional thought content and thought process is linear and goal-directed. Minimizing her symptoms and need for hospitalization. Memory and concentration: AOX3, grossly intact for the purposes of this session Judgment and insight: poor, mildly improving. Assessment Major depressive disorder, without psychotic features Anxiety disorder unspecified Plan: -workers compensation manager continuing to look into transfer to [facility] when a bed is available. Packets were faxed and currently pending. -Would recommend the following medication changes/additions: Continue with Lexapro 10 mg daily for mood/anxiety, continue with melatonin 5 mg nightly for sleep. -Continue to follow LFTs daily and appreciate GI recommendations. Patient's LFTs are fluctuating. Continue with Mucomyst dosing as recommended by GI. -Continue 1:1 sitter for safety -Cannot leave AMA at this time. Patient will need a petition and certification if attempting to leave AMA. -Will continue to follow along -Please contact with any questions. Discussed this plan with patient's nurse.
--- NOTE | 2020-04-03 13:14 | P.PN ---
Subjective Progress Note Date: 04/03/20 This is a 74-year-old female one of Dr. Morales with a previous medical history significant for hypertension and hypertensive cardiovascular disease, hyperlipidemia, acute ischemic cerebral vascular accident in the distribution of the right middle cerebral artery with left-sided weakness status post tPA, with almost complete resolution of the symptoms in October 2019. During that hospitalization, she also developed new onset atrial fibrillation and started on eliquis. Patient states that she took pills. She took greater than 15 Tylenol tablets. She states she was hoping that she would fall asleep and not wake up. She states I can't take it anymore. At this time she states she was not suicidal but was yesterday. She called for help and was brought into the hospital for evaluation. Patient does state that her family abandoned her and took everything that she had. She does not have power of document review attorney or guardian. Vital signs were stable, EKG sinus rhythm. Sodium 141, potassium 3.9, chloride 109, CO2 19. Initial total bilirubin 0.3, AST 42, ALT 38, alkaline phosphatase 90. Salicylate level 8.6, acetaminophen level 169 serum alcohol level less than 10. Urine drug screen detected opiates, oxycodone, benzodiazepines. Urinalysis was clear with nitrate and leukoesterase negative. Patient was given 1 dose of Mucomyst [facility]. studio operations engineer in charge is at the bedside. Consult in place for psychiatry. Patient does have a history of divorce from her approximate 4 years ago and has not had a relationship with her children since that time. 04/02: The patient has been seen by psychiatry with recommendations for geriatric inpatient and social work is following for this. Patient is to be continued on safety grooving machine operator. Patient cannot leave AMA and will need a petition insert is attempting to leave AMA. Patient denies any new complaints today. She does have elevation of her liver function tests with total bilirubin 1, AST 547, ALT 543, alkaline phosphatase 82. Repeat acetaminophen level this morning is less than 10. Patient has also been seen by GI with plan to continue to monitor liver function tests including INR, continue oral Mucomyst which we have discontinued this morning due to Tylenol level being normal. Anticipate patient may be ready for discharge and transfer [facility] tomorrow. Patient has been afebrile, heart rate 59, blood pressure 96/56, pulse ox 95% on room air. 04/03: Patient remains with sitter at the bedside. She has been afebrile, heart rate 62, blood pressure 112/69, pulse ox 94% on room air. Patient did refuse before a.m. dose of Mucomyst 80 and that she thought it made her sick to her stomach. She is agreeable to continue at this time. GI would like her to complete full course of Mucomyst. We anticipate discharge to geriatric psych unit tomorrow. Social work has been updated. Repeat blood work reveals INR 1.1, potassium 3.2, chloride 113, CO2 19, BUN 20 creatinine 2.87. Total bilirubin 1.1, AST 374, ALT 568, alkaline phosphatase 151. WBC 11.8, hemoglobin 0.4, platelet count 184. Review of Systems Constitutional: No fever, no chills, no night sweats. No weight change. No weakness, fatigue or lethargy. No daytime sleepiness. Patient more cooperative today. EENT: No headache. No blurred vision or double vision, no loss of vision. No loss of Hearing, no ringing in the ears, no dizziness. No nasal drainage or congestion. Lungs: No shortness of breath, cough, no sputum production. No wheezing. Cardiovascular: No chest pain, no lower extremity edema. No palpitations. No paroxysmal nocturnal dyspnea. No orthopnea. No lightheadedness or dizziness. No syncopal episodes. Abdominal: No abdominal pain. No nausea, vomiting. No diarrhea. No cons tipation. No bloody or tarry stools.. No loss of appetite. Genitourinary: No dysuria, increased frequency, urgency. No urinary retention. Musculoskeletal: No myalgias. No muscle weakness, no gait dysfunction, no frequent falls. No back pain. No neck pain. Integumentary: No wounds, no lesions. No rash or pruritus. No unusual bruising. No change in hair or nails. Neurologic: No aphasia. No facial droop. No change in mentation. No head injury. No headache. No paralysis. No paresthesia. Psychiatric: Reports depression. No anxiety. No mood swings. Denies cyanosis vital ideation at the time of evaluation. Endocrine: No abnormal blood sugars. No weight change. No excessive sweating or thirst. No cold intolerance. Physical Examination Gen: This is a 74-year-old female. She is resting at the bedside and appears to be comfortable, no acute distress. studio operations engineer in charge is at bedside HEENT: Head is atraumatic, normocephalic. Pupils equal, round. Sclerae is anicteric. NECK: Supple. No JVD. No lymphadenopathy. No thyromegaly. LUNGS: Clear to auscultation. No wheezes or rhonchi. No intercostal retractions. HEART: Regular rate and rhythm. No murmur. ABDOMEN: Soft. Bowel sounds are present. No masses. No tenderness. EXTREMITIES: No pedal edema. No calf tenderness. NEUROLOGICAL: Patient is awake, alert and oriented x3. Cranial nerves 2 through 12 are grossly intact. Assessment and Plan 1. Recurrent depression with suicide attempt. Continue safety grooving machine operator, ps ychiatry consult appreciated, social work consult for discharge planning to [facility] [place]. 2. Tylenol overdose with elevation in liver function tests. Mucomyst discontinued this morning. Consult with GI appreciated, monitor liver tests. Hold statin for now. 3. History of acute ischemic CVA, stable. Continue eliquis. 4. Hypertension hypertensive cardiovascular disease. Continue Lopressor 50 mg twice daily, lisinopril 10 mg twice daily, Norvasc 5 mg daily. 5. Paroxysmal atrial fibrillation. Continue eliquis 5 mg twice daily, Lopressor 50 mg twice daily. 6. Gastroesophageal reflux disease. Continue Protonix. 7. DVT prophylaxis. Eliquis. 8. COVID-19 infection not present. Discharge plan: Transfer to [facility] [place] on . Continue safety grooving machine operator. Impression and plan of care have been directed as dictated by the signing physician. Elsy Spangler nurse practitioner acting as scribe for signing physician. Objective - Vital Signs Vital signs: Vital Signs Temp 98.1 F 04/03/20 04:44 Pulse 58 L 04/03/20 04:44 Resp 16 04/03/20 04:44 BP 112/69 04/03/20 04:44 Pulse Ox 94 L 04/03/20 04:44 Intake & Output 04/02/20 04/03/20 04/03/20 18:59 06:59 18:59 Intake Total 600 Balance 600 Intake: Intake, IV Titration 600 Amount Sodium Chloride 0.9% 1, 600 000 ml @ 75 mls/hr IV . [id number] [facility] Rx#:[id number] Other: Voiding Method Toilet Toilet # Voids 3 - Labs CBC & Chem 7: 04/03/20 07:11 04/03/20 07:11 Labs: Abnormal Lab Results - Last 24 Hours (Table) 04/02/20 04/02/20 04/02/20 Range/Units 07:31 18:12 18:12 PT 12.4 H (9.0-12.0) sec INR 1.2 H (<1.2) Chloride 110 H (98-107) mmol/L BUN 23 H (7-17) mg/dL AST 547 H 407 H (14-36) U/L ALT 543 H 492 H (4-34) U/L Total Protein 5.9 L (6.3-8.2) g/dL Albumin 3.1 L (3.5-5.0) g/dL
[2020-04-03] MEDS: SODIUM CHLORIDE 0.9% 1,000 ML IV SCH (14:18)
--- NOTE | 2020-04-03 17:22 | PN ---
PROGRESS NOTE DATE OF DICTATION: 04/03/2020 This patient is a 74-year-old pleasant white female admitted to the hospital with Tylenol overdose. She is doing better. She was noted to have elevated serum transaminases, which are gradually improving. She refused to take Mucomyst last night, and according to the nursing staff, they contacted Poison Control and were told to hold off on the Mucomyst for now. The patient denies any symptoms. PHYSICAL EXAMINATION: Vital signs are stable. Blood pressure 118/65, pulse rate 57, temperature 98.2. HEENT examination unremarkable. Conjunctivae pink. Sclerae anicteric. Oral cavity no lesions. NECK: No JVD or lymph node enlargement. CHEST: Clear to auscultation. HEART: Regular rate and rhythm. ABDOMEN: Soft. Bowel sounds are positive. No organomegaly. EXTREMITIES: No pedal edema. NEUROLOGIC: Alert and oriented x3. No focal deficits. LABS: Labs from today show WBC 11.8, hemoglobin 11.4, platelets normal. AST and ALT are 374 and 568, respectively. Alkaline phosphatase 151. INR is 1.1. IMPRESSION: 1. Elevated liver function tests/acute hepatitis secondary to Tylenol toxicity. LFTs are slightly improving. INR is normal at 1.1. The patient received a total of 8 doses of oral Mucomyst and after that she refused to take it. As per Poison Control, she can stop the Mucomyst at this time. Patient clinically asymptomatic. No evidence of coagulopathy. 2. History of anxiety and depression. RECOMMENDATIONS: 1. Monitor LFTs on a daily basis. 2. Avoid hepatotoxic medications. 3. Advance diet as tolerated. 4. Will follow with you closely. Thank you for this consultation. MMODL / IJN: [id number] /
[2020-04-03] MEDS: MELATONIN 5 MG TABLET PO SCH (21:45)
[2020-04-04] MEDS: ONDANSETRON 4 MG/2 ML VIAL IVP PRN ×2 (02:03→08:09)
[2020-04-04] MEDS: SODIUM CHLORIDE 0.9% 1,000 ML IV SCH ×2 (06:11→20:17)
--- NOTE | 2020-04-04 08:02 | P.DS ---
Providers Date of admission: 03/31/20 18:25 Expected date of discharge: 04/05/20 Attending physician: Armand Morales Consults: 03/31/20 18:26 Consult Physician Urgent Consulting Provider: Demario De Anda Consult Reason/Comments: Overdose Do you want consulting provider notified?: Yes 04/01/20 08:25 Consult Physician Routine Consulting Provider: Odalys Miller Consult Reason/Comments: Tylenol OD Do you want consulting provider notified?: Yes Primary care physician: Armand Morales [facility] Course: This is a 74-year-old female one of Dr. Morales with a previous medical history significant for hypertension and hypertensive cardiovascular disease, hyperlipidemia, acute ischemic cerebral vascular accident in the distribution of the right middle cerebral artery with left-sided weakness status post tPA, with almost complete resolution of the symptoms in October 2019. During that hospitalization, she also developed new onset atrial fibrillation and started on eliquis. Patient states that she took pills. She took greater than 15 Tylenol tablets. She states she was hoping that she would fall asleep and not wake up. She states I can't take it anymore. At this time she states she was not suicidal but was yesterday. She called for help and was brought into the hospital for evaluation. Patient does state that her family abandoned her and took everything that she had. She does not have power of trademark attorney or guardian. Vital signs were stable, EKG sinus rhythm. Sodium 141, potassium 3.9, chloride 109, CO2 19. Initial total bilirubin 0.3, AST 42, ALT 38, alkaline phosphatase 90. Salicylate level 8.6, acetaminophen level 169 serum alcohol level less than 10. Urine drug screen detected opiates, oxycodone, benzodiazepines. Urinalysis was clear with nitrate and leukoesterase negative. Patient was given 1 dose of Mucomyst [facility] link trainer mechanic is at the bedside. Consult in place for psychiatry. Patient does have a history of divorce from her approximate 4 years ago and has not had a relationship with her children since that time. 04/02: The patient has been seen by psychiatry with recommendations for geriatric inpatient and social work is following for this. Patient is to be continued on vehicle safety inspector. Patient cannot leave AMA and will need a petition insert is attempting to leave AMA. Patient denies any new complaints today. She does have elevation of her liver function tests with total bilirubin 1, AST 547, ALT 543, alkaline phosphatase 82. Repeat acetaminophen level this morning is less than 10. Patient has also been seen by GI with plan to continue to monitor liver function tests including INR, continue oral Mucomyst which we have discontinued this morning due to Tylenol level being normal. Anticipate patient may be ready for discharge and [facility]. Patient has been afebrile, heart rate 59, blood pressure 96/56, pulse ox 95% on room air. 04/03: Patient remains with sitter at the bedside. She has been afebrile, heart rate 62, blood pressure 112/69, pulse ox 94% on room air. Patient did refuse before a.m. dose of Mucomyst 80 and that she thought it made her sick to her stomach. She is agreeable to continue at this time. GI would like her to complete full course of Mucomyst. We anticipate discharge to geriatric psych unit tomorrow. Social work has been updated. Repeat blood work reveals INR 1.1, potassium 3.2, chloride 113, CO2 19, BUN 20 creatinine 2.87. Total bilirubin 1.1, AST 374, ALT 568, alkaline phosphatase 151. WBC 11.8, hemoglobin 0.4, platelet count 184. 04/04: Patient is found sitting up in bed. She is in no acute distress. link trainer mechanic remains at the bedside. Physician certification has been completed. The patient has received a total of 9 doses of Mucomyst and has refused starting yesterday morning. Poison control was updated and okay to hold Mucomyst. Patient has had increase in liver function tests today and discharged to geriatric psych center will be postponed until Wednesday. Patient is complaining of nausea and Zofran available. INR is 1.1. Potassium 3.2 and will be replaced, chloride 115, CO2 20. BUN 13 and creatinine 0.66. Total bilirubin 1.3, AST 503, ALT 718, alkaline phosphatase 259. 04/05: This morning, patient is complaining of shortness of breath. Chest x-ray showed early heart failure and one dose of Lasix and potassium ordered. Repeat lab work today reveals Patient has been afebrile, pulse ox 96% on 2 L nasal cannula, blood pressure 168/74, heart rate 68. Patient will be discharged to [facility] once all arrangements are completed. Assessment and Plan 1. Recurrent depression with suicide attempt. 2. Tylenol overdose with elevation in liver function tests. 3. History of acute ischemic CVA, stable. 4. Hypertension hypertensive cardiovascular disease. 5. Paroxysmal atrial fibrillation. 6. Gastroesophageal reflux disease. 7. COVID-19 infection not present. Discharge plan: Transfer to [facility] on . Impression and plan of care have been directed as dictated by the signing physician. Elsy Spangler nurse practitioner acting as scribe for signing physician. Patient Condition at Discharge: Good Plan - Discharge Summary Discharge Rx Participant: No New Discharge Prescriptions: New Escitalopram [Lexapro] 10 mg PO DAILY tab Melatonin 5 mg PO HS tablet Pantoprazole [Protonix] 40 mg PO AC-BRKFST tablet.dr Cullen Apixaban [Eliquis] 5 mg PO BID #60 tab amLODIPine [Norvasc] 5 mg PO DAILY #30 tab Lisinopril [Zestril] 10 mg PO BID #60 tab Metoprolol Tartrate [Lopressor] 50 mg PO BID Discontinued Pravastatin Sodium [Pravachol] 40 mg PO DAILY Discharge Medication List Apixaban [Eliquis] 5 mg PO BID #60 tab 10/23/19 [Rx] Lisinopril [Zestril] 10 mg PO BID #60 tab 10/23/19 [Rx] amLODIPine [Norvasc] 5 mg PO DAILY #30 tab 10/23/19 [Rx] Metoprolol Tartrate [Lopressor] 50 mg PO BID 03/31/20 [History] Escitalopram [Lexapro] 10 mg PO DAILY tab 04/04/20 [Rx] Melatonin 5 mg PO HS tablet 04/04/20 [Rx] Pantoprazole [Protonix] 40 mg PO AC-BRKFST tablet. 04/04/20 [Rx] Follow up Appointment(s)/Referral(s): Armand Morales MD [Primary Care Provider] - 1 Week (after discharge from [facility])
[2020-04-04] MEDS: PANTOPRAZOLE 40 MG TABLET PO SCH (08:09)
[2020-04-04 08:24] LABS: INR 1.1 (<1.2); Prothrombin Time 10.8 sec (9.0-12.0)
[2020-04-04 08:25] LABS: ALT 718 U/L (4-34); AST 503 U/L (14-36); African American GFR (CKD) >90 (>60 ml/min/1.73 sqM); Albumin 2.7 g/dL (3.5-5.0); Alkaline Phosphatase 259 U/L (38-126); Anion Gap 5 mmol/L; Blood Urea Nitrogen 13 mg/dL (7-17); Calcium 9.1 mg/dL (8.4-10.2); Carbon Dioxide 20 mmol/L (22-30); Chloride 115 mmol/L (98-107); Glucose 113 mg/dL (74-99); Non-African American GFR(CKD) 88 (>60 ml/min/1.73 sqM); Potassium 3.2 mmol/L (3.5-5.1); Sodium 140 mmol/L (137-145); Total Bilirubin 1.3 mg/dL (0.2-1.3); Total Protein 5.4 g/dL (6.3-8.2)
[2020-04-04] MEDS: LISINOPRIL 10 MG TAB PO SCH ×2 (09:34→20:16)
[2020-04-04] MEDS: amLODIPine 5 MG TAB PO SCH (09:34)
[2020-04-04] MEDS: ESCITALOPRAM 10 MG TAB PO SCH (09:34)
[2020-04-04] MEDS: APIXABAN 5 MG TAB PO SCH ×2 (09:34→20:16)
[2020-04-04] MEDS: POTASSIUM CHLORIDE ER 20 MEQ TAB.ER PO SCH ×2 (09:34→12:13)
[2020-04-04] MEDS: METOPROLOL TARTRATE 50 MG TAB PO SCH ×2 (09:34→20:16)
[2020-04-04] MEDS: PROCHLORPERAZINE 10 MG TAB PO PRN (12:13)
--- NOTE | 2020-04-04 12:14 | P.PN ---
Subjective Progress Note Date: 04/04/20 This is a 74-year-old female one of Dr. Morales with a previous medical history significant for hypertension and hypertensive cardiovascular disease, hyperlipidemia, acute ischemic cerebral vascular accident in the distribution of the right middle cerebral artery with left-sided weakness status post tPA, with almost complete resolution of the symptoms in October 2019. During that hospitalization, she also developed new onset atrial fibrillation and started on eliquis. Patient states that she took pills. She took greater than 15 Tylenol tablets. She states she was hoping that she would fall asleep and not wake up. She states I can't take it anymore. At this time she states she was not suicidal but was yesterday. She called for help and was brought into the hospital for evaluation. Patient does state that her family abandoned her and took everything that she had. She does not have power of erisa attorney or guardian. Vital signs were stable, EKG sinus rhythm. Sodium 141, potassium 3.9, chloride 109, CO2 19. Initial total bilirubin 0.3, AST 42, ALT 38, alkaline phosphatase 90. Salicylate level 8.6, acetaminophen level 169 serum alcohol level less than 10. Urine drug screen detected opiates, oxycodone, benzodiazepines. Urinalysis was clear with nitrate and leukoesterase negative. Patient was given 1 dose of Mucomyst [facility] cadastral surveyor is at the bedside. Consult in place for psychiatry. Patient does have a history of divorce from her approximate 4 years ago and has not had a relationship with her children since that time. 04/02: The patient has been seen by psychiatry with recommendations for geriatric inpatient and social work is following for this. 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 Patient cannot leave AMA and will need a petition insert is attempting to leave AMA. Patient denies any new complaints today. She does have elevation of her liver function tests with total bilirubin 1, AST 547, ALT 543, alkaline phosphatase 82. Repeat acetaminophen level this morning is less than 10. Patient has also been seen by GI with plan to continue to monitor liver function tests including INR, continue oral Mucomyst which we have discontinued this morning due to Tylenol level being normal. Anticipate patient may be ready for discharge and [facility]. Patient has been afebrile, heart rate 59, blood pressure 96/56, pulse ox 95% on room air. 04/03: Patient remains with sitter at the bedside. She has been afebrile, heart rate 62, blood pressure 112/69, pulse ox 94% on room air. Patient did refuse before a.m. dose of Mucomyst 80 and that she thought it made her sick to her stomach. She is agreeable to continue at this time. GI would like her to complete full course of Mucomyst. We anticipate discharge to geriatric psych unit tomorrow. Social work has been updated. Repeat blood work reveals INR 1.1, potassium 3.2, chloride 113, CO2 19, BUN 20 creatinine 2.87. Total bilirubin 1.1, AST 374, ALT 568, alkaline phosphatase 151. WBC 11.8, hemoglobin 0.4, platelet count 184. 04/04: Patient is found sitting up in bed. She is in no acute distress. cadastral surveyor remains at the bedside. Physician certification has been completed. The patient has received a total of 9 doses of Mucomyst and has refused starting yesterday morning. Poison control was updated and okay to hold Mucomyst. Patient has had increase in liver function tests today and discharged to [facility] will be postponed until Wednesday. Patient is complaining of nausea and Zofran available. INR is 1.1. Potassium 3.2 and will be replaced, chloride 115, CO2 20. BUN 13 and creatinine 0.66. Total bilirubin 1.3, AST 503, ALT 718, alkaline phosphatase 259. Review of Systems Constitutional: No fever, no chills, no night sweats. No weight change. No weakness, fatigue or lethargy. No daytime sleepiness. Patient more cooperative today. EENT: No headache. No blurred vision or double vision, no loss of vision. No loss of Hearing, no ringing in the ears, no dizziness. No nasal drainage or congestion. Lungs: No shortness of breath, cough, no sputum production. No wheezing. Cardiovascular: No chest pain, no lower extremity edema. No palpitations. No paroxysmal nocturnal dyspnea. No orthopnea. No lightheadedness or dizziness. No syncopal episodes. Abdominal: No abdominal pain. Reports nausea, vomiting. No diarrhea. No constipation. No bloody or tarry stools.. No loss of appetite. Genitourinary: No dysuria, increased frequency, urgency. No urinary retention. Musculoskeletal: No myalgias. No muscle weakness, no gait dysfunction, no frequent falls. No back pain. No neck pain. Integumentary: No wounds, no lesions. No rash or pruritus. No unusual bruising. No change in hair or nails. Neurologic: No aphasia. No facial droop. No change in mentation. No head injury. No headache. No paralysis. No paresthesia. Psychiatric: Reports depression. No anxiety. No mood swings. Denies cyanosis vital ideation at the time of evaluation. Endocrine: No abnormal blood sugars. No weight change. No excessive sweating or thirst. No cold intolerance. Physical Examination Gen: This is a 74-year-old female. She is resting in bed and appears to be comfortable, no acute distress. cadastral surveyor is at bedside HEENT: Head is atraumatic, normocephalic. Pupils equal, round. Sclerae is anicteric. NECK: Supple. No JVD. No lymphadenopathy. No thyromegaly. LUNGS: Clear to auscultation. No wheezes or rhonchi. No intercostal retractions. HEART: Regular rate and rhythm. No murmur. ABDOMEN: Soft. Bowel sounds are present. No masses. No tenderness. EXTREMITIES: No pedal edema. No calf tenderness. NEUROLOGICAL: Patient is awake, alert and oriented x3. Cranial nerves 2 through 12 are grossly intact. Assessment and Plan 1. Recurrent depression with suicide attempt. Continue occupational safety and health manager, psychiatry consult appreciated, social work consult for discharge planning to [facility] [place]. 2. Tylenol overdose with elevation in liver function tests. Mucomyst completed 9 doses. Consult with GI appreciated, monitor liver tests including INR. Hold statin for now. 3. History of acute ischemic CVA, stable. Continue eliquis. 4. Hypertension hypertensive cardiovascular disease. Continue Lopressor 50 mg twice daily, lisinopril 10 mg twice daily, Norvasc 5 mg daily. 5. Paroxysmal atrial fibrillation. Continue eliquis 5 mg twice daily, Lopressor 50 mg twice daily. 6. Gastroesophageal reflux disease. Continue Protonix. 7. DVT prophylaxis. Eliquis. 8. COVID-19 infection not present. Discharge plan: Transfer to [facility] on Wednesday. Continue occupational safety and health manager. Impression and plan of care have been directed as dictated by the signing physician. Elsy Spangler nurse practitioner acting as scribe for signing physician. Objective - Vital Signs Vital signs: Vital Signs Temp 98.3 F 04/04/20 05:00 Pulse 56 L 04/04/20 08:00 Resp 18 04/04/20 08:00 BP 123/58 04/04/20 05:00 Pulse Ox 92 L 04/04/20 05:00 Intake & Output 04/03/20 04/04/20 04/04/20 18:59 06:59 18:59 Intake Total 600 825 480 Balance 600 825 480 Intake: Intake, IV Titration 600 825 Amount Sodium Chloride 0.9% 1, 600 825 000 ml @ 75 mls/hr IV . [id number] [facility] Rx#:[id number] Oral 480 Other: Voiding Method Toilet Toilet Toilet # Voids 1 3 - Labs CBC & Chem 7: 04/03/20 07:11 04/04/20 07:11 Labs: Abnormal Lab Results - Last 24 Hours (Table) 04/04/20 Range/Units 07:11 Potassium 3.2 L (3.5-5.1) mmol/L Chloride 115 H (98-107) mmol/L Carbon Dioxide 20 L (22-30) mmol/L Glucose 113 H (74-99) mg/dL AST 503 H (14-36) U/L ALT 718 H (4-34) U/L Alkaline Phosphatase 259 H (38-126) U/L Total Protein 5.4 L (6.3-8.2) g/dL Albumin 2.7 L (3.5-5.0) g/dL
[2020-04-04] MEDS: MELATONIN 5 MG TABLET PO SCH (20:16)
--- NOTE | 2020-04-05 05:18 | P.PN ---
Subjective Progress Note Date: 04/04/20 Principal diagnosis: Acetaminophen toxicity, elevated liver enzymes Patient is seen lying in bed today. With no nausea, vomiting or abdominal pain reported. Tolerating her diet. Objective - Vital Signs Vital signs: Vital Signs Temp 98.4 F 04/04/20 12:33 Pulse 60 04/04/20 12:33 Resp 16 04/04/20 12:33 BP 131/56 04/04/20 12:33 Pulse Ox 92 L 04/04/20 12:33 Intake & Output 04/03/20 04/04/20 04/04/20 18:59 06:59 18:59 Intake Total 600 825 480 Balance 600 825 480 Intake: Intake, IV Titration 600 825 Amount Sodium Chloride 0.9% 1, 600 825 000 ml @ 75 mls/hr IV . [id number] [facility] Rx#:[id number] Oral 480 Other: Voiding Method Toilet Toilet Toilet # Voids 1 3 - Exam On physical examination, patient appears comfortable in no apparent distress. HEAD: Normocephalic, atraumatic. EYES: No scleral icterus. No conjunctival injection. MOUTH: No lesions, tongue midline. NECK: Trachea midline, no gross abnormalities. ABDOMEN: Soft, obese. Bowel sounds are positive. No organomegaly. No guarding or rigidity. EXTREMITIES: No pedal edema. SKIN: No rashes, no jaundice. NEUROLOGIC: Alert and oriented x3. No focal deficits. - Labs CBC & Chem 7: 04/03/20 07:11 04/04/20 07:11 Labs: Abnormal Lab Results - Last 24 Hours (Table) 04/04/20 Range/Units 07:11 Potassium 3.2 L (3.5-5.1) mmol/L Chloride 115 H (98-107) mmol/L Carbon Dioxide 20 L (22-30) mmol/L Glucose 113 H (74-99) mg/dL AST 503 H (14-36) U/L ALT 718 H (4-34) U/L Alkaline Phosphatase 259 H (38-126) U/L Total Protein 5.4 L (6.3-8.2) g/dL Albumin 2.7 L (3.5-5.0) g/dL Assessment and Plan (1) Elevated liver enzymes Narrative/Plan: 74-year-old female admitted for acetaminophen overdose with findings of elevated liver enzymes. No evidence of encephalopathy or elevation in INR do suggest liver failure at this time. Liver enzymes slightly higher today, continue to monitor. Current Visit: Yes Status: Acute Code(s): R74.8 - ABNORMAL LEVELS OF OTHER SERUM ENZYMES SNOMED Code(s): 842316454 (2) Acetaminophen overdose Current Visit: Yes Status: Acute Code(s): T39.1X1A - POISONING BY 4- AMINOPHENOL DERIVATIVES, ACCIDENTAL, INIT SNOMED Code(s): 599811499 Plan: Supportive care Okay for diet Continue to monitor CBC, BMP, LFTs and INR No evidence of encephalopathy Okay for discharge when liver enzymes are trending down with plan for transfer to geriatric psychiatric bed Thank you for allowing us to participate in the care of the patient
[2020-04-05] MEDS: LISINOPRIL 10 MG TAB PO SCH ×2 (07:32→22:22)
[2020-04-05] MEDS: PANTOPRAZOLE 40 MG TABLET PO SCH (07:32)
[2020-04-05] MEDS: METOPROLOL TARTRATE 50 MG TAB PO SCH ×2 (07:32→22:22)
[2020-04-05] MEDS: ESCITALOPRAM 10 MG TAB PO SCH (07:33)
[2020-04-05] MEDS: SODIUM CHLORIDE 0.9% 1,000 ML IV SCH (07:33)
[2020-04-05] MEDS: amLODIPine 5 MG TAB PO SCH (07:33)
[2020-04-05] MEDS: APIXABAN 5 MG TAB PO SCH ×2 (07:33→22:23)
--- NOTE | 2020-04-05 07:35 | XR ---
EXAMINATION TYPE: XR chest 1V portable DATE OF EXAM: 04/05/2020 COMPARISON: 10/19/2019 INDICATION: Short of breath TECHNIQUE: Single frontal view of the chest is obtained. FINDINGS: The heart size is normal. The pulmonary vasculature is very prominent. Perihilar infiltrate is present IMPRESSION: 1. Clinical correlation recommended for pulmonary edema and congestive heart failure.
[2020-04-05] MEDS ORDERED: FUROSEMIDE 10 MG/ML 4 ML VIAL IV STA (07:44)
[2020-04-05 08:09] LABS: INR 1.1 (<1.2); Prothrombin Time 10.8 sec (9.0-12.0)
[2020-04-05] MEDS ORDERED: POTASSIUM CHLORIDE ER 20 MEQ TAB.ER PO ONE (09:21)
--- NOTE | 2020-04-05 09:34 | CDI ---
Documentation Clarification Form Date: 04/05/2020 08:26:00 AM From: Ceci Interiano RN, CCDS Admit Date: 03/31/2020 06:25:00 PM Patient Name: Ros Palumbo Visit Number: [id number] Discharge Date: ATTENTION: The Clinical Documentation Specialists (CDI) and [facility] Coding Staff appreciate your assistance in clarifying documentation. Please respond to the clarification below the line at the bottom and electronically sign. The CDI & [facility] Coding staff will review the response and follow-up if needed. Please note: Queries are made part of the Legal Health Record. If you have any questions, please contact the author of this message via ITS. Dr. Armand Morales 04/05 discharge summary has early heart failure and one dose of Lasix ordered. Request further clarification of treatment. History/Risk Factors: Hypertensive, hypertensive cardiovascular disease, CVA, Atrial fibrillation Clinical Indicators: 74-year-old female present to ED on 03/31 with suicide attempt, Tylenol overdose and elevation in liver function tests. On 04/05 per progress notes she is complaining of shortness of breath. 04/05 Chest x-ray: Clinical correlation recommended for pulmonary edema and congestive heart failure. 04/05 VS/Pulse OX: 169/74 65 20 96 % 2/L NC 10/20/19 Echocardiogram Results: Overall left ventricular systolic function is normal with, an EF between 60-65 % Treatment: Lasix IV 40 mg X1 Lopressor 50 mg po bid Norvasc 5 mg po daily Zestril 10 mg po bid In your professional opinion, can you please clarify the acuity and type of CHF if known xx Acute Diastolic Heart Failure: Unable to Determine Other, please specify (Last Revision: January 2018) MTDD
[2020-04-05 11:37] LABS: Basophils % (A) 0 %; Eosinophils # (A) 0.1 k/uL (0-0.7); Eosinophils % (A) 1 %; HCT 37.7 % (34.0-46.0); HGB 11.8 gm/dL (11.4-16.0); Hypochromasia Marked; Lymphocytes % (A) 8 %; MCH 32.4 pg (25.0-35.0); MCHC 31.3 g/dL (31.0-37.0); MCV 103.6 fL (80.0-100.0); Macrocytosis Slight; Mean Platelet Volume 11.9; Monocytes # (A) 0.6 k/uL (0-1.0); Monocytes % (A) 5 %; Neutrophils # (A) 10.5 k/uL (1.3-7.7); Neutrophils % (A) 85 %; Platelet Count 193 k/uL (150-450); RBC 3.64 m/uL (3.80-5.40); RDW 14.2 % (11.5-15.5); WBC 12.3 k/uL (3.8-10.6)
[2020-04-05 12:20] LABS: ALT 714 U/L (4-34); AST 326 U/L (14-36); African American GFR (CKD) >90 (>60 ml/min/1.73 sqM); Albumin 2.8 g/dL (3.5-5.0); Alkaline Phosphatase 286 U/L (38-126); Anion Gap 6 mmol/L; Blood Urea Nitrogen 11 mg/dL (7-17); Carbon Dioxide 24 mmol/L (22-30); Chloride 109 mmol/L (98-107); Glucose 171 mg/dL (74-99); Non-African American GFR(CKD) 79 (>60 ml/min/1.73 sqM); Potassium 3.3 mmol/L (3.5-5.1); Sodium 139 mmol/L (137-145); Total Bilirubin 1.4 mg/dL (0.2-1.3); Total Protein 5.5 g/dL (6.3-8.2)
--- NOTE | 2020-04-05 12:32 | CONS ---
CONSULTATION DATE OF SERVICE: 04/05/2020 The patient is a 74-year-old pleasant white female admitted to the hospital with acute Tylenol overdose about 5 days ago. She is doing well. She is complaining of some shortness of breath. This morning she denies any abdominal pain. No nausea, vomiting. PHYSICAL EXAMINATION: Blood pressure is 113/62, pulse rate 54, temperature 98.2. HEENT examination unremarkable. Conjunctivae pink. Sclerae anicteric. Oral cavity no lesions. NECK: No JVD or lymph node enlargement. CHEST: Clear to auscultation. HEART: Regular rate and rhythm. ABDOMEN: Soft. Bowel sounds are positive. No organomegaly EXTREMITIES: No pedal edema. NEURO: She is alert, oriented to name and place. LAB: Labs from today are still pending. Yesterday AST is 503 and ALT 718. INR is 1.1. T- bili normal. Alkaline phosphatase 259. IMPRESSION: 1. Acute Tylenol toxicity with acute hepatocellular necrosis. Serum transaminases are increased in the 600 and 700 range. The patient clinically doing well. 2. Mild shortness of breath. 3. History of cerebrovascular accident in the past. RECOMMENDATIONS: 1. Monitor LFTs closely. 2. Avoid hepatotoxic medications. 3. Repeat labs tomorrow morning. 4. Continue symptomatic supportive care. 5. We will follow with you closely. Thank you for this consultation. MMODL / IJN: [id number] /
[2020-04-05] MEDS ORDERED: POTASSIUM CHLORIDE ER 20 MEQ TAB.ER PO STA (13:23)
--- NOTE | 2020-04-05 13:27 | P.PN ---
Subjective Progress Note Date: 04/05/20 This is a 74-year-old female one of Dr. Morales with a previous medical history significant for hypertension and hypertensive cardiovascular disease, hyperlipidemia, acute ischemic cerebral vascular accident in the distribution of the right middle cerebral artery with left-sided weakness status post tPA, with almost complete resolution of the symptoms in October 2019. During that hospitalization, she also developed new onset atrial fibrillation and started on eliquis. Patient states that she took pills. She took greater than 15 Tylenol tablets. She states she was hoping that she would fall asleep and not wake up. She states I can't take it anymore. At this time she states she was not suicidal but was yesterday. She called for help and was brought into the hospital for evaluation. Patient does state that her family abandoned her and took everything that she had. She does not have power of human machine interface engineer or guardian. Vital signs were stable, EKG sinus rhythm. Sodium 141, potassium 3.9, chloride 109, CO2 19. Initial total bilirubin 0.3, AST 42, ALT 38, alkaline phosphatase 90. Salicylate level 8.6, acetaminophen level 169 serum alcohol level less than 10. Urine drug screen detected opiates, oxycodone, benzodiazepines. Urinalysis was clear with nitrate and leukoesterase negative. Patient was given 1 dose of Mucomyst [facility] research worker encyclopedia is at the bedside. Consult in place for psychiatry. Patient does have a history of divorce from her approximate 4 years ago and has not had a relationship with her children since that time. 04/02: The patient has been seen by psychiatry with recommendations for geriatric inpatient and social work is following for this. Patient is to be continued on industrial safety and health specialist. Patient cannot leave AMA and will need a petition insert is attempting to leave AMA. Patient denies any new complaints today. She does have elevation of her liver function tests with total bilirubin 1, AST 547, ALT 543, alkaline phosphatase 82. Repeat acetaminophen level this morning is less than 10. Patient has also been seen by GI with plan to continue to monitor liver function tests including INR, continue oral Mucomyst which we have discontinued this morning due to Tylenol level being normal. Anticipate patient may be ready for discharge and [facility]. Patient has been afebrile, heart rate 59, blood pressure 96/56, pulse ox 95% on room air. 04/03: Patient remains with sitter at the bedside. She has been afebrile, heart rate 62, blood pressure 112/69, pulse ox 94% on room air. Patient did refuse before a.m. dose of Mucomyst 80 and that she thought it made her sick to her stomach. She is agreeable to continue at this time. GI would like her to complete full course of Mucomyst. We anticipate discharge to geriatric psych unit tomorrow. Social work has been updated. Repeat blood work reveals INR 1.1, potassium 3.2, chloride 113, CO2 19, BUN 20 creatinine 2.87. Total bilirubin 1.1, AST 374, ALT 568, alkaline phosphatase 151. WBC 11.8, hemoglobin 0.4, platelet count 184. 04/04: Patient is found sitting up in bed. She is in no acute distress. research worker encyclopedia remains at the bedside. Physician certification has been completed. The patient has received a total of 9 doses of Mucomyst and has refused starting yesterday morning. Poison control was updated and okay to hold Mucomyst. Patient has had increase in liver function tests today and discharged to [facility] will be postponed until Wednesday. Patient is complaining of nausea and Zofran available. INR is 1.1. Potassium 3.2 and will be replaced, chloride 115, CO2 20. BUN 13 and creatinine 0.66. Total bilirubin 1.3, AST 503, ALT 718, alkaline phosphatase 259. 04/05: This morning, patient was complaining of shortness of breath and chest x- ray showed possible fluid overload. Patient was given 1 dose of IV Lasix. She does not have diagnosis of heart failure. IV fluid was discontinued and patient does have significant improvement following IV Lasix. Repeat blood work reveals sodium 13.3, chloride 109, CO2 24, BUN 11 and creatinine 0.75. Total bilirubin increased to 1.4, AST 326, ALT 714, alkaline phosphatase 286. GI is reviewed lab work and feels patient needs to stay another day. Social work and patient's nurse of been updated. Repeat lab work is scheduled for tomorrow. Sitter remains at the bedside. Prior to discharge to inpatient geriatric psych center, a repeat physician circumflex will need to be completed. Review of Systems Constitutional: No fever, no chills, no night sweats. No weight change. No weakness, fatigue or lethargy. No daytime sleepiness. Patient more cooperative today. EENT: No headache. No blurred vision or double vision, no loss of vision. No loss of Hearing, no ringing in the ears, no dizziness. No nasal drainage or congestion. Lungs: No shortness of breath, cough, no sputum production. No wheezing. Cardiovascular: No chest pain, no lower extremity edema. No palpitations. No paroxysmal nocturnal dyspnea. No orthopnea. No lightheadedness or dizziness. No syncopal episodes. Abdominal: No abdominal pain. Reports nausea, vomiting. No diarrhea. No constipation. No bloody or tarry stools.. No loss of appetite. Genitourinary: No dysuria, increased frequency, urgency. No urinary retention. Musculoskeletal: No myalgias. No muscle weakness, no gait dysfunction, no frequent falls. No back pain. No neck pain. Integumentary: No wounds, no lesions. No rash or pruritus. No unusual bruising. No change in hair or nails. Neurologic: No aphasia. No facial droop. No change in mentation. No head injury. No headache. No paralysis. No paresthesia. Psychiatric: Reports depression. No anxiety. No mood swings. Denies cyanosis vital ideation at the time of evaluation. Endocrine: No abnormal blood sugars. No weight change. No excessive sweating or thirst. No cold intolerance. Physical Examination Gen: This is a 74-year-old female. She is resting in bed and appears to be mildly dyspneic with movement. research worker encyclopedia is at bedside HEENT: Head is atraumatic, normocephalic. Pupils equal, round. Sclerae is anicteric. NECK: Supple. No JVD. No lymphadenopathy. No thyromegaly. LUNGS: Clear to auscultation. No wheezes or rhonchi. No intercostal retractions. HEART: Regular rate and rhythm. No murmur. ABDOMEN: Soft. Bowel sounds are present. No masses. No tenderness. EXTREMITIES: No pedal edema. No calf tenderness. NEUROLOGICAL: Patient is awake, alert and oriented x3. Cranial nerves 2 through 12 are grossly intact. Assessment and Plan 1. Recurrent depression with suicide attempt. Continue industrial safety and health specialist, psychiatry consult appreciated, social work consult for discharge planning to geriatric psych center. 2. Tylenol overdose with elevation in liver function tests. Mucomyst completed 9 doses. Consult with GI appreciated, monitor liver tests including INR. Hold statin for now. 3. Acute fluid overload secondary to IV fluids. Patient does not have diagnosis of heart failure. One dose of IV Lasix given and IV fluids discontinued. 4. History of acute ischemic CVA, stable. Continue eliquis. 5. Hypertension hypertensive cardiovascular disease. Continue Lopressor 50 mg twice daily, lisinopril 10 mg twice daily, Norvasc 5 mg daily. 6. Paroxysmal atrial fibrillation. Continue eliquis 5 mg twice daily, Lopressor 50 mg twice daily. 7. Gastroesophageal reflux disease. Continue Protonix. 8. DVT prophylaxis. Eliquis. 9. COVID-19 infection not present. Discharge plan: Transfer to [facility] [place] once liver function test and INR improved, cleared by GI. Continue industrial safety and health specialist. Impression and plan of care have been directed as dictated by the signing physician. Elsy Spangler nurse practitioner acting as scribe for signing physician. Objective - Vital Signs Vital signs: Vital Signs Temp 98.3 F 04/05/20 12:35 Pulse 62 04/05/20 12:35 Resp 17 04/05/20 12:35 BP 122/57 04/05/20 12:35 Pulse Ox 97 04/05/20 12:35 Intake & Output 04/04/20 04/05/20 04/05/20 18:59 06:59 18:59 Intake Total 480 225 Balance 480 225 Intake: Intake, IV Titration 225 Amount Sodium Chloride 0.9% 1, 225 000 ml @ 75 mls/hr IV . [id number] [facility] Rx#:[id number] Oral 480 Other: Voiding Method Toilet Toilet Toilet # Voids 3 2 2 - Labs CBC & Chem 7: 04/05/20 07:40 04/05/20 11:33 Labs: Abnormal Lab Results - Last 24 Hours (Table) 04/05/20 04/05/20 Range/Units 07:40 11:33 WBC 12.3 H (3.8-10.6) k/uL RBC 3.64 L (3.80-5.40) m/uL MCV 103.6 H (80.0-100.0) fL Neutrophils # 10.5 H (1.3-7.7) k/uL Potassium 3.3 L (3.5-5.1) mmol/L Chloride 109 H (98-107) mmol/L Glucose 171 H (74-99) mg/dL Total Bilirubin 1.4 H (0.2-1.3) mg/dL AST 326 H (14-36) U/L ALT 714 H (4-34) U/L Alkaline Phosphatase 286 H (38-126) U/L Total Protein 5.5 L (6.3-8.2) g/dL Albumin 2.8 L (3.5-5.0) g/dL
--- NOTE | 2020-04-05 14:47 | P.CON ---
Consult Note - . Consult date: 04/05/20 Assessment/Plan:: Clinical Problems: suicide attempt by overdose of [place], major depressive disorder severe without psychotic features Interim history: Reviewed the medical record and interviewed the patient. She was evaluated by Dr. De Anda on 04/01/2020 and 04/03/2020. He diagnosed major depressive disorder and recommended transfer to a geropsychiatric unit. The patient was somatically focused and complained about her physical health. She is most distressed by what she perceives as side effects to the Lasix and potassium. Every time I asked her about her mood she talked about her physical health and physical concerns. I reviewed the reason for hospitalization and she denied that she intentionally attempted overdose with [place]. She is aware of our recommendations for transfer to a geropsychiatric unit it was greatly concerned about where and how she would be transferred. Mental status exam: She presented as an obese and pale appearing elderly woman who looked much older than his stated age. She made eye contact and attended to the interview. She had bruising on her arm but no prominent physical abnormalities. She had a sad facial expression. She had psychomotor retardation but no abnormal movements. Her speech was spontaneous with decreased rate and volume. Her affect was depressed and not reactive. She denied suicidal ideation or wishes. She denied feeling hopeless, helpless or worthless. She did not express ideas reference, paranoid ideation or delusions. Her thinking was abstract and associations were coherent and logical. She denied hallucinations did not appear to be responding to internal stimuli. Assessment: She continues appear to be severely depressed and has limited insight or understanding of the severity of her depression and need for treatment. Plan: I concur with the plan for transfer to a geropsychiatric unit. Continue with one-to-one sitter until transfer. Clinical certificate completed.
[2020-04-05 15:53] VITALS: BMI 33.0
[2020-04-05] MEDS: ONDANSETRON 4 MG/2 ML VIAL IVP PRN (20:21)
[2020-04-05] MEDS: MELATONIN 5 MG TABLET PO SCH (22:22)
[2020-04-05] MEDS: PROCHLORPERAZINE 10 MG TAB PO PRN (22:30)
[2020-04-06] MEDS: ONDANSETRON 4 MG/2 ML VIAL IVP PRN (01:58)
[2020-04-06 07:28] LABS: Prothrombin Time 10.6 sec (9.0-12.0)
[2020-04-06 07:34] LABS: ALT 519 U/L (4-34); AST 159 U/L (14-36); African American GFR (CKD) >90 (>60 ml/min/1.73 sqM); Albumin 2.6 g/dL (3.5-5.0); Alkaline Phosphatase 265 U/L (38-126); Anion Gap 4 mmol/L; Blood Urea Nitrogen 9 mg/dL (7-17); Calcium 8.9 mg/dL (8.4-10.2); Carbon Dioxide 26 mmol/L (22-30); Chloride 109 mmol/L (98-107); Glucose 115 mg/dL (74-99); Non-African American GFR(CKD) >90 (>60 ml/min/1.73 sqM); Potassium 3.7 mmol/L (3.5-5.1); Sodium 139 mmol/L (137-145); Total Bilirubin 1.1 mg/dL (0.2-1.3); Total Protein 5.1 g/dL (6.3-8.2)
[2020-04-06] MEDS: APIXABAN 5 MG TAB PO SCH ×2 (08:45→23:07)
[2020-04-06] MEDS: LISINOPRIL 10 MG TAB PO SCH ×2 (08:46→23:06)
[2020-04-06] MEDS: PANTOPRAZOLE 40 MG TABLET PO SCH (08:46)
[2020-04-06] MEDS: amLODIPine 5 MG TAB PO SCH (08:46)
[2020-04-06] MEDS: PROCHLORPERAZINE 10 MG TAB PO PRN (08:46)
[2020-04-06] MEDS: METOPROLOL TARTRATE 50 MG TAB PO SCH ×2 (08:46→23:06)
[2020-04-06] MEDS: ESCITALOPRAM 10 MG TAB PO SCH (09:22)
[2020-04-06] MEDS: LIDOCAINE 2% GEL 30 ML TUBE TOPICAL SCH ×2 (12:24→23:07)
[2020-04-06] MEDS: MELOXICAM 7.5 MG TAB PO SCH (12:24)
--- NOTE | 2020-04-06 13:44 | PN ---
PROGRESS NOTE DATE OF SERVICE: 04/06/2020 Patient is a 74-year-old pleasant white female admitted to the hospital with Tylenol toxicity and acute transaminitis. Patient is doing better. Her serum transaminases have trended down today. She denies any symptoms other than some fatigue and shortness of breath. PHYSICAL EXAMINATION: Appears comfortable. Blood pressure 146/67, pulse is 70, temperature 99. HEENT examination unremarkable. Conjunctivae pink, sclerae anicteric. Oral cavity no lesions. NECK: No JVD or lymph node enlargement. CHEST: Clear to auscultation. HEART: Regular rate and rhythm. ABDOMEN: Soft. Bowel sounds are positive. No organomegaly. EXTREMITIES: No pedal edema. NEUROLOGIC: Alert and oriented x3. No focal deficits. LAB: Bilirubin 1.1, AST 159, ALT 519, alkaline phosphatase 265. INR 1. IMPRESSION: 1. Acute Tylenol toxicity causing acute hepatitis with elevated serum transaminases for the last 3-4 days and today they are trending down with ALT and AST at 159 and 519 respectively. 2. History of depression. 3. Shortness of breath on supplemental oxygen. The patient received some Lasix yesterday and feeling much better. RECOMMENDATIONS: 1. Monitor LFTs closely. 2. If they continue to improve, tomorrow she can be discharged home with an outpatient followup in 2 weeks. Thank you for this consultation. MMJULIAL / IJN: [id number] /
[2020-04-06 15:11] LABS: Appearance,Urine Cloudy (Clear); Bilirubin,Urine Negative (Negative); Blood,Urine Negative (Negative); Color,Urine Yellow; Glucose,Urine (UA) Negative (Negative); Hyaline Casts,Urine 1 /lpf (0-2); Ketones,Urine Negative (Negative); Leukocyte Esterase,Urine Large (Negative); Mucus,Urine Rare /hpf; Nitrite,Urine Negative (Negative); Protein,Urine 1+ (Negative); Specific Gravity,Urine 1.012 (1.001-1.035); Squamous Epithelial Cell,Urine 2 /hpf (0-4); WBC,Urine 8 /hpf (0-5)
--- NOTE | 2020-04-06 16:24 | P.PN ---
Subjective Progress Note Date: 04/06/20 This is a 74-year-old female one of Dr. Morales with a previous medical history significant for hypertension and hypertensive cardiovascular disease, hyperlipidemia, acute ischemic cerebral vascular accident in the distribution of the right middle cerebral artery with left-sided weakness status post tPA, with almost complete resolution of the symptoms in October 2019. During that hospitalization, she also developed new onset atrial fibrillation and started on eliquis. Patient states that she took pills. She took greater than 15 Tylenol tablets. She states she was hoping that she would fall asleep and not wake up. She states I can't take it anymore. At this time she states she was not suicidal but was yesterday. She called for help and was brought into the hospital for evaluation. Patient does state that her family abandoned her and took everything that she had. She does not have power of it account manager or guardian. Vital signs were stable, EKG sinus rhythm. Sodium 141, potassium 3.9, chloride 109, CO2 19. Initial total bilirubin 0.3, AST 42, ALT 38, alkaline phosphatase 90. Salicylate level 8.6, acetaminophen level 169 serum alcohol level less than 10. Urine drug screen detected opiates, oxycodone, benzodiazepines. Urinalysis was clear with nitrate and leukoesterase negative. Patient was given 1 dose of Mucomyst [facility] special makeup fx artist instructor is at the bedside. Consult in place for psychiatry. Patient does have a history of divorce from her approximate 4 years ago and has not had a relationship with her children since that time. 04/02: The patient has been seen by psychiatry with recommendations for geriatric inpatient and social work is following for this. Patient is to be continued on environmental health safety engineer. Patient cannot leave AMA and will need a petition insert is attempting to leave AMA. Patient denies any new complaints today. She does have elevation of her liver function tests with total bilirubin 1, AST 547, ALT 543, alkaline phosphatase 82. Repeat acetaminophen level this morning is less than 10. Patient has also been seen by GI with plan to continue to monitor liver function tests including INR, continue oral Mucomyst which we have discontinued this morning due to Tylenol level being normal. Anticipate patient may be ready for discharge and transfer to [facility] tomorrow. Patient has been afebrile, heart rate 59, blood pressure 96/56, pulse ox 95% on room air. 04/03: Patient remains with sitter at the bedside. She has been afebrile, heart rate 62, blood pressure 112/69, pulse ox 94% on room air. Patient did refuse before a.m. dose of Mucomyst 80 and that she thought it made her sick to her stomach. She is agreeable to continue at this time. GI would like her to complete full course of Mucomyst. We anticipate discharge to geriatric psych unit tomorrow. Social work has been updated. Repeat blood work reveals INR 1.1, potassium 3.2, chloride 113, CO2 19, BUN 20 creatinine 2.87. Total bilirubin 1.1, AST 374, ALT 568, alkaline phosphatase 151. WBC 11.8, hemoglobin 0.4, platelet count 184. 04/04: Patient is found sitting up in bed. She is in no acute distress. special makeup fx artist instructor remains at the bedside. Physician certification has been completed. The patient has received a total of 9 doses of Mucomyst and has refused starting yesterday morning. Poison control was updated and okay to hold Mucomyst. Patient has had increase in liver function tests today and discharged to [facility] will be postponed until Wednesday. Patient is complaining of nausea and Zofran available. INR is 1.1. Potassium 3.2 and will be replaced, chloride 115, CO2 20. BUN 13 and creatinine 0.66. Total bilirubin 1.3, AST 503, ALT 718, alkaline phosphatase 259. 04/05: This morning, patient is complaining of shortness of breath. Chest x-ray showed early heart failure and one dose of Lasix and potassium ordered. Repeat lab work today reveals Patient has been afebrile, pulse ox 96% on 2 L nasal cannula, blood pressure 168/74, heart rate 68. Patient will be discharged to [facility] once all arrangements are completed. 04/06, patient does not feel well today, she does have lower abdominal pain, no right upper quadrant pain, no diarrhea, patient cannot relate to any dysuria, patient has pain all over, we started her on meloxicam 15 mg daily, patient c annot take Tylenol as she did have Tylenol overdoses with attempted overdose with [place], with elevation of liver function tests. Was awaiting transfer to [facility], most likely on Wednesday, transaminase is trending downward, INR is normal, status post Mucomyst treatment,, patient also has insomnia, melatonin is not waking patient was seen by psychiatry, patient continous to have limited insight, and he still severely depressed, patient is on Lexapro 10, no medication changes were made with psychiatry,, patient has environmental health safety engineer at bedside. GI has cleared for discharge, with outpatient follow-up in [address] Miller urinalysis requested secondary to lower abdominal pain, suprapu bic, doubt diverticular pathology, Objective - Vital Signs Vital signs: Vital Signs Temp 98 F 04/06/20 12:27 Pulse 58 L 04/06/20 12: Resp 18 04/06/20 12:27 BP 120/61 04/06/20 12: Pulse Ox 90 L 04/06/20 12:27 Intake & Output 04/05/20 04/06/20 04/06/20 18:59 06:59 18:59 Intake Total 680 750 Balance 680 750 Weight 82 kg Intake: Oral 680 750 Other: Voiding Method Toilet Toilet Toilet # Voids 2 2 3 # Bowel Movements 1 - Constitutional General appearance: Present: cooperative, no acute distress - EENT Eyes: Present: anicteric sclerae, dentition normal, normal appearance ENT: Present: NA/AT, normal oropharynx - Neck Neck: Present: normal ROM - Respiratory Respiratory: bilateral: CTA, negative: diminished, dullness - Cardiovascular Rhythm: regular Heart sounds: normal: S1, S2 Abnormal Heart Sounds: Absent: systolic murmur, diastolic murmur, rub, S3 Gallop, S4 Gallop, click, other - Gastrointestinal General gastrointestinal: Present: normal bowel sounds, soft, tenderness (Epigastric) - Integumentary Integumentary: Present: normal, normal turgor - Neurologic Neurologic: Present: CNII-XII intact - Musculoskeletal Musculoskeletal: Present: strength equal bilaterally - Psychiatric Psychiatric: Present: A&O x's 3 - Labs CBC & Chem 7: 04/05/20 07:40 04/06/20 06:34 Labs: Abnormal Lab Results - Last 24 Hours (Table) 04/06/20 04/06/20 Range/Units 06:34 14:45 Chloride 109 H (98-107) mmol/L Glucose 115 H (74-99) mg/dL AST 159 H (14-36) U/L ALT 519 H (4-34) U/L Alkaline Phosphatase 265 H (38-126) U/L Total Protein 5.1 L (6.3-8.2) g/dL Albumin 2.6 L (3.5-5.0) g/dL Urine Appearance Cloudy H (Clear) Urine Protein 1+ H (Negative) Ur Leukocyte Esterase Large H (Negative) Urine WBC 8 H (0-5) /hpf Urine Mucus Rare H (None) /hpf Assessment and Plan Plan: 1. Recurrent depression with suicide attempt. Continue environmental health safety engineer, psychiatry consult appreciated, social work consult for discharge planning to [facility]iatric psych center. Patient is on Lexapro, patient might benefit from Cymbalta 30 mg daily secondary to chronic pain issues and dysthymia, major depression however I would leave it up to psych for management of SSRIs 2. Tylenol overdose with elevation in liver function tests. Mucomyst completed 9 doses. Consult with GI appreciated, monitor liver tests including INR. Hold statin for now. 3. History of acute ischemic CVA, stable. Continue eliquis. 4. Hypertension hypertensive cardiovascular disease. Continue Lopressor 50 mg twice daily, lisinopril 10 mg twice daily, Norvasc 5 mg daily. 5. Paroxysmal atrial fibrillation. Continue eliquis 5 mg twice daily, Lop ressor 50 mg twice daily. 6. Polyarthralgia, uncontrolled, lidocaine on specific localized pain sites, and meloxicam 15 mg with food, patient is on [place], cannot get any opiates or Tylenol secondary to Tylenol overdose with transaminitis and liver toxicity, 6. Gastroesophageal reflux disease. Continue Protonix. 7. DVT prophylaxis. Eliquis. 8. Stress ulcer prevention, patient is on Protonix, patient has epigastric pain, without any evidence of bleeding, 9. Lower abdominal pain, no evidence of diverticulitis, check lipase, urinalysis unremarkable, WBC is under 10 8. COVID-19 infection not present.
[2020-04-06] MEDS ORDERED: PRAVASTATIN SODIUM 40 MG TAB PO SCH (21:00)
[2020-04-06] MEDS: MELATONIN 5 MG TABLET PO SCH (23:09)
[2020-04-07] MEDS: MELOXICAM 7.5 MG TAB PO SCH (07:42)
[2020-04-07] MEDS: METOPROLOL TARTRATE 50 MG TAB PO SCH ×2 (07:42→19:26)
[2020-04-07] MEDS: APIXABAN 5 MG TAB PO SCH ×2 (07:42→19:26)
[2020-04-07] MEDS: amLODIPine 5 MG TAB PO SCH (07:42)
[2020-04-07] MEDS: ESCITALOPRAM 10 MG TAB PO SCH (07:42)
[2020-04-07] MEDS: PANTOPRAZOLE 40 MG TABLET PO SCH (07:43)
[2020-04-07] MEDS: LISINOPRIL 10 MG TAB PO SCH ×2 (07:43→19:26)
[2020-04-07] MEDS: LIDOCAINE 2% GEL 30 ML TUBE TOPICAL SCH ×2 (07:43→19:27)
[2020-04-07 08:05] LABS: Basophils % (A) 0 %; Eosinophils # (A) 0.4 k/uL (0-0.7); Eosinophils % (A) 3 %; HCT 33.1 % (34.0-46.0); HGB 10.8 gm/dL (11.4-16.0); Hypochromasia Slight; Lymphocytes # (A) 0.9 k/uL (1.0-4.8); Lymphocytes % (A) 9 %; MCH 32.9 pg (25.0-35.0); MCHC 32.7 g/dL (31.0-37.0); MCV 100.7 fL (80.0-100.0); Macrocytosis Slight; Mean Platelet Volume 9.4; Monocytes # (A) 0.5 k/uL (0-1.0); Monocytes % (A) 5 %; Neutrophils # (A) 8.2 k/uL (1.3-7.7); Neutrophils % (A) 81 %; Platelet Count 199 k/uL (150-450); RBC 3.28 m/uL (3.80-5.40); RDW 14.3 % (11.5-15.5); WBC 10.2 k/uL (3.8-10.6)
[2020-04-07 08:16] LABS: ALT 374 U/L (4-34); AST 83 U/L (14-36); African American GFR (CKD) >90 (>60 ml/min/1.73 sqM); Albumin 2.9 g/dL (3.5-5.0); Alkaline Phosphatase 262 U/L (38-126); Anion Gap 6 mmol/L; Blood Urea Nitrogen 11 mg/dL (7-17); Calcium 9.1 mg/dL (8.4-10.2); Carbon Dioxide 25 mmol/L (22-30); Chloride 107 mmol/L (98-107); Glucose 119 mg/dL (74-99); Non-African American GFR(CKD) >90 (>60 ml/min/1.73 sqM); Potassium 3.6 mmol/L (3.5-5.1); Sodium 138 mmol/L (137-145); Total Bilirubin 0.9 mg/dL (0.2-1.3); Total Protein 5.7 g/dL (6.3-8.2)
--- NOTE | 2020-04-07 14:33 | PN ---
PROGRESS NOTE DATE OF SERVICE: April 07, 2020 Patient is a 74-year-old pleasant white female admitted to the hospital with acute Tylenol toxicity. Patient doing well. She denies any symptoms. Shortness of breath resolved. Nausea is completely resolved. She feels much better today. PHYSICAL EXAMINATION: She appears comfortable. No apparent distress. Vital signs stable. Blood pressure 104/63, pulse 56, temperature 98.4. HEENT examination unremarkable. Conjunctivae pink. Sclerae anicteric. Oral cavity no lesions. NECK no JVD or lymph node enlargement. CHEST was clear to auscultation. HEART: Regular rate and rhythm. ABDOMEN: Soft. Bowel sounds are positive. No organomegaly. EXTREMITIES: No pedal edema. NEUROLOGIC: Alert and oriented x3. No focal deficits. LABS: WBC 10.2, hemoglobin 10.8, platelets normal. Basic metabolic panel is within normal limits. AST is down to 83, ALT is down to 374. T-bilirubin normal, alkaline phosphatase 262. IMPRESSION: 1. Acute Tylenol overdose with hepatotoxicity, which is gradually improving. LFTs are gradually improving. 2. Nausea, resolved. 3. Anxiety, depression. 4. Shortness of breath, improving. RECOMMENDATIONS: 1. Monitor LFTs closely. 2. Continue symptomatic and supportive care. 3. The patient is ready for discharge to the facility tomorrow. She can follow up in the office in 2 weeks. Thank you for this consultation. LAMAR / MILADYN: [id number] /
--- NOTE | 2020-04-07 16:52 | P.PN ---
Subjective Progress Note Date: 04/07/20 This is a 74-year-old female one of Dr. Morales with a previous medical history significant for hypertension and hypertensive cardiovascular disease, hyperlipidemia, acute ischemic cerebral vascular accident in the distribution of the right middle cerebral artery with left-sided weakness status post tPA, with almost complete resolution of the symptoms in October 2019. During that hospitalization, she also developed new onset atrial fibrillation and started on eliquis. Patient states that she took pills. She took greater than 15 Tylenol tablets. She states she was hoping that she would fall asleep and not wake up. She states I can't take it anymore. At this time she states she was not suicidal but was yesterday. She called for help and was brought into the hospital for evaluation. Patient does state that her family abandoned her and took everything that she had. She does not have power of corporate associate attorney or guardian. Vital signs were stable, EKG sinus rhythm. Sodium 141, potassium 3.9, chloride 109, CO2 19. Initial total bilirubin 0.3, AST 42, ALT 38, alkaline phosphatase 90. Salicylate level 8.6, acetaminophen level 169 serum alcohol level less than 10. Urine drug screen detected opiates, oxycodone, benzodiazepines. Urinalysis was clear with nitrate and leukoesterase negative. Patient was given 1 dose of Mucomyst [facility]. manager technical sales is at the bedside. Consult in place for psychiatry. Patient does have a history of divorce from her approximate 4 years ago and has not had a relationship with her children since that time. 04/02: The patient has been seen by psychiatry with recommendations for geriatric inpatient and social work is following for this. Patient is to be continued on process safety manager. Patient cannot leave AMA and will need a petition insert is attempting to leave AMA. Patient denies any new complaints today. She does have elevation of her liver function tests with total bilirubin 1, AST 547, ALT 543, alkaline phosphatase 82. Repeat acetaminophen level this morning is less than 10. Patient has also been seen by GI with plan to continue to monitor liver function tests including INR, continue oral Mucomyst which we have discontinued this morning due to Tylenol level being normal. Anticipate patient may be ready for discharge and [facility]. Patient has been afebrile, heart rate 59, blood pressure 96/56, pulse ox 95% on room air. 04/03: Patient remains with sitter at the bedside. She has been afebrile, heart rate 62, blood pressure 112/69, pulse ox 94% on room air. Patient did refuse before a.m. dose of Mucomyst 80 and that she thought it made her sick to her stomach. She is agreeable to continue at this time. GI would like her to complete full course of Mucomyst. We anticipate discharge to geriatric psych unit tomorrow. Social work has been updated. Repeat blood work reveals INR 1.1, potassium 3.2, chloride 113, CO2 19, BUN 20 creatinine 2.87. Total bilirubin 1.1, AST 374, ALT 568, alkaline phosphatase 151. WBC 11.8, hemoglobin 0.4, platelet count 184. 04/04: Patient is found sitting up in bed. She is in no acute distress. manager technical sales remains at the bedside. Physician certification has been completed. The patient has received a total of 9 doses of Mucomyst and has refused starting yesterday morning. Poison control was updated and okay to hold Mucomyst. Patient has had increase in liver function tests today and discharged to [facility] will be postponed until Wednesday. Patient is complaining of nausea and Zofran available. INR is 1.1. Potassium 3.2 and will be replaced, chloride 115, CO2 20. BUN 13 and creatinine 0.66. Total bilirubin 1.3, AST 503, ALT 718, alkaline phosphatase 259. 04/05: This morning, patient is complaining of shortness of breath. Chest x-ray showed early heart failure and one dose of Lasix and potassium ordered. Repeat lab work today reveals Patient has been afebrile, pulse ox 96% on 2 L nasal cannula, blood pressure 168/74, heart rate 68. Patient will be discharged to [facility] once all arrangements are completed. 04/06, patient does not feel well today, she does have lower abdominal pain, no right upper quadrant pain, no diarrhea, patient cannot relate to any dysuria, patient has pain all over, we started her on meloxicam 15 mg daily, patient c annot take Tylenol as she did have Tylenol overdoses with attempted overdose with [place], with elevation of liver function tests. Was awaiting transfer to [facility], most likely on Wednesday, transaminase is trending downward, INR is normal, status post Mucomyst treatment,, patient also has insomnia, melatonin is not waking patient was seen by psychiatry, patient continous to have limited insight, and he still severely depressed, patient is on Lexapro 10, no medication changes were made with psychiatry,, patient has process safety manager at bedside. GI has cleared for discharge, with outpatient follow-up in [address] Miller urinalysis requested secondary to lower abdominal pain, suprapu bic, doubt diverticular pathology, 628, patient still has insomnia, despite melatonin 6, patient also has dyspepsia, requesting Tums, patient does not have any chest pain no palpitations, no diarrhea, no constipation, patient has better anxiety, does not have any new agitation, awaiting transfer to inpatient psychiatry, most likely in the morning. Urinalysis shows 8 WBC, lipase slightly elevated at 386 mild for pancreatitis, low-fat diet requested, transaminase is trending downward, with alkaline phosphatase of 262, ALT of 374, AST of 83, check, abdominal ultrasound for common bile duct obstruction Objective - Vital Signs Vital signs: Vital Signs Temp 98.4 F 04/07/20 11:29 Pulse 56 L 04/07/20 11:29 Resp 16 04/07/20 11:29 BP 104/63 04/07/20 11:29 Pulse Ox 95 04/07/20 11:29 Intake & Output 04/06/20 04/07/20 04/07/20 18:59 06:59 18:59 Intake Total 350 Balance 350 Intake: Oral 350 Other: Voiding Method Toilet Toilet Toilet # Voids 3 4 2 # Bowel Movements 1 0 - Constitutional General appearance: Present: cooperative, no acute distress - EENT Eyes: Present: EOMI, PERRLA, dentition normal ENT: Present: NA/AT - Neck Neck: Present: normal ROM Thyroid: negative: nodule - Respiratory Respiratory: bilateral: CTA, negative: diminished, dullness, rales, rhonchi, wheezing - Cardiovascular Rhythm: regular Heart sounds: normal: S1 Abnormal Heart Sounds: Absent: systolic murmur, diastolic murmur, rub, S3 Gallop, S4 Gallop, click, other - Integumentary Integumentary: Present: normal - Neurologic Neurologic: Present: CNII-XII intact - Musculoskeletal Musculoskeletal: Present: gait normal, strength equal bilaterally - Psychiatric Psychiatric: Present: A&O x's 3, appropriate affect - Labs CBC & Chem 7: 04/07/20 06:59 04/07/20 06:59 Labs: Abnormal Lab Results - Last 24 Hours (Table) 04/07/20 04/07/20 Range/Units 06:59 06:59 RBC 3.28 L (3.80-5.40) m/uL Hgb 10.8 L (11.4-16.0) gm/dL Hct 33.1 L (34.0-46.0) % MCV 100.7 H (80.0-100.0) fL Neutrophils # 8.2 H (1.3-7.7) k/uL Lymphocytes # 0.9 L (1.0-4.8) k/uL Glucose 119 H (74-99) mg/dL AST 83 H (14-36) U/L ALT 374 H (4-34) U/L Alkaline Phosphatase 262 H (38-126) U/L Total Protein 5.7 L (6.3-8.2) g/dL Albumin 2.9 L (3.5-5.0) g/dL Lipase 386 H (23-300) U/L Microbiology - Last 24 Hours (Table) 04/06/20 14:45 Urine Culture - Preliminary Urine,Voided Assessment and Plan Plan: 1. Recurrent depression with suicide attempt. Continue process safety manager, psychiatry consult appreciated, social work consult for discharge planning to [facility]. Patient is on Lexapro, patient might benefit from Cymbalta 30 mg daily secondary to chronic pain issues and dysthymia, major depression however I would leave it up to psych for management of SSRIs 2. Tylenol overdose with elevation in liver function tests. Mucomyst completed 9 doses. Consult with GI appreciated, monitor liver tests including INR. Hold statin for now. 3. History of acute ischemic CVA, stable. Continue eliquis. 4. Hypertension hypertensive cardiovascular disease. Continue Lopressor 50 mg twice daily, lisinopril 10 mg twice daily, Norvasc 5 mg daily. 5. Paroxysmal atrial fibrillation. Continue eliquis 5 mg twice daily, Lopres sor 50 mg twice daily. 6. Polyarthralgia, uncontrolled, lidocaine on specific localized pain sites, and meloxicam 15 mg with food, patient is on [place], cannot get any opiates or Tylenol secondary to Tylenol overdose with transaminitis and liver toxicity, 6. Gastroesophageal reflux disease. Continue Protonix. 7. Elevated lipase with dyspepsia, mild pancreatitis, has elevated alkaline phosphatase with AST ALT elevation lipase elevation, he would obtain abdominal ultrasound, to evaluate for common bile duct obstruction, lipase and check an a.m., Maalox when necessary for dyspepsia, low-fat diet 7. DVT prophylaxis. Eliquis. 8. Stress ulcer prevention, patient is on Protonix, patient has epigastric pain, without any evidence of bleeding, 9. Lower abdominal pain, no evidence of diverticulitis, check lipase, urinalysis unremarkable, WBC is under 10 8. COVID-19 infection not present.
[2020-04-07] MEDS: MAG HYDROX/AL HYDROX/SIMETH 30 ML CUP PO SCH ×2 (18:03→22:43)
--- NOTE | 2020-04-07 18:25 | US ---
EXAMINATION TYPE: US abdomen complete DATE OF EXAM: 04/07/2020 COMPARISON: NONE CLINICAL HISTORY: pancreatitis abdominal pain. Pancreatitis, GB removed EXAM MEASUREMENTS: Liver Length: 12.8 cm CBD: 0.4 cm Spleen: 7.3 cm Right Kidney: 9.5 x 4.7 x 4.7 cm Left Kidney: 10.1 x 5.6 x 4.4 cm Difficult exam, pt unable to hold breath in during exam Pancreas: Cystic area within body= 0.8 x 0.7 cm Liver: wnl Gallbladder: Surgically absent Evidence for sonographic Li's sign: CBD: wnl Spleen: Difficult to visualize Right Kidney: Visualized portions appeared wnl Left Kidney: Visualized portions appeared wnl Upper IVC: wnl Abd Aorta: wnl Incidental finding small right pleural effusion IMPRESSION: There is cholecystectomy. No dilated ducts. Small curvilinear fluid area in the pancreas of doubtful significance. Small right pleural effusion is noted.
[2020-04-07] MEDS: MELATONIN 5 MG TABLET PO SCH (19:26)
[2020-04-07] MEDS ORDERED: clonazePAM 0.5 MG TAB PO STA (22:41)
[2020-04-07] MEDS: CALCIUM CARBONATE 500 MG CHEWABLE PO PRN (22:50)
[2020-04-08 07:04] LABS: Basophils # (A) 0.1 k/uL (0-0.2); Basophils % (A) 1 %; Eosinophils # (A) 0.5 k/uL (0-0.7); Eosinophils % (A) 6 %; HCT 32.3 % (34.0-46.0); HGB 10.4 gm/dL (11.4-16.0); Hypochromasia Slight; Lymphocytes % (A) 12 %; MCH 32.4 pg (25.0-35.0); MCHC 32.2 g/dL (31.0-37.0); MCV 100.7 fL (80.0-100.0); Macrocytosis Slight; Mean Platelet Volume 8.7; Monocytes # (A) 0.5 k/uL (0-1.0); Monocytes % (A) 5 %; Neutrophils # (A) 6.7 k/uL (1.3-7.7); Neutrophils % (A) 75 %; Platelet Count 223 k/uL (150-450); RBC 3.21 m/uL (3.80-5.40); RDW 14.2 % (11.5-15.5)
[2020-04-08 07:15] LABS: ALT 271 U/L (4-34); AST 54 U/L (14-36); African American GFR (CKD) >90 (>60 ml/min/1.73 sqM); Albumin 2.7 g/dL (3.5-5.0); Alkaline Phosphatase 215 U/L (38-126); Anion Gap 2 mmol/L; Blood Urea Nitrogen 10 mg/dL (7-17); Carbon Dioxide 26 mmol/L (22-30); Chloride 111 mmol/L (98-107); Glucose 109 mg/dL (74-99); Non-African American GFR(CKD) >90 (>60 ml/min/1.73 sqM); Potassium 3.9 mmol/L (3.5-5.1); Sodium 139 mmol/L (137-145); Total Bilirubin 0.6 mg/dL (0.2-1.3); Total Protein 5.4 g/dL (6.3-8.2)
[2020-04-08] MEDS: amLODIPine 5 MG TAB PO SCH (08:30)
[2020-04-08] MEDS: ESCITALOPRAM 10 MG TAB PO SCH (08:31)
[2020-04-08] MEDS: LIDOCAINE 2% GEL 30 ML TUBE TOPICAL SCH ×3 (08:31→20:30)
[2020-04-08] MEDS: METOPROLOL TARTRATE 50 MG TAB PO SCH ×2 (08:31→20:24)
[2020-04-08] MEDS: APIXABAN 5 MG TAB PO SCH ×2 (08:31→20:25)
[2020-04-08] MEDS: LISINOPRIL 10 MG TAB PO SCH ×2 (08:31→20:24)
[2020-04-08] MEDS: PANTOPRAZOLE 40 MG TABLET PO SCH (08:31)
[2020-04-08] MEDS: MAG HYDROX/AL HYDROX/SIMETH 30 ML CUP PO SCH ×5 (08:31→20:27)
[2020-04-08] MEDS: MELOXICAM 7.5 MG TAB PO SCH (08:31)
[2020-04-08] MEDS: CALCIUM CARBONATE 500 MG CHEWABLE PO PRN (12:09)
--- NOTE | 2020-04-08 12:37 | P.DS ---
Providers Date of admission: 03/31/20 18:25 This is a 74-year-old female one of Dr. Morales with a previous medical history significant for hypertension and hypertensive cardiovascular disease, hyperlipidemia, acute ischemic cerebral vascular accident in the distribution of the right middle cerebral artery with left-sided weakness status post tPA, with almost complete resolution of the symptoms in October 2019. During that hospitalization, she also developed new onset atrial fibrillation and started on eliquis. Patient states that she took pills. She took greater than 15 Tylenol tablets. She states she was hoping that she would fall asleep and not wake up. She states I can't take it anymore. At this time she states she was not suicidal but was yesterday. She called for help and was brought into the hospital for evaluation. Patient does state that her family abandoned her and took everything that she had. She does not have power of study lead or guardian. Vital signs were stable, EKG sinus rhythm. Sodium 141, potassium 3.9, chloride 109, CO2 19. Initial total bilirubin 0.3, AST 42, ALT 38, alkaline phosphatase 90. Salicylate level 8.6, acetaminophen level 169 serum alcohol level less than 10. Urine drug screen detected opiates, oxycodone, benzodiazepines. Urinalysis was clear with nitrate and leukoesterase negative. Patient was given 1 dose of Mucomyst [facility]. coil winder repair is at the bedside. Consult in place for psychiatry. Patient does have a history of divorce from he r approximate 4 years ago and has not had a relationship with her children since that time. 04/02: The patient has been seen by psychiatry with recommendations for geriatric inpatient and social work is following for this. Patient is to be continued on safety council director. Patient cannot leave AMA and will need a petition insert is attempting to leave AMA. Patient denies any new complaints today. She does have elevation of her liver function tests with total bilirubin 1, AST 547, ALT 543, alkaline phosphatase 82. Repeat acetaminophen level this morning is less than 10. Patient has also been seen by GI with plan to continue to monitor liver function tests including INR, continue oral Mucomyst which we have discontinued this morning due to Tylenol level being normal. Anticipate patient may be ready for discharge and [facility]. Patient has been afebrile, heart rate 59, blood pressure 96/56, pulse ox 95% on room air. 04/03: Patient remains with sitter at the bedside. She has been afebrile, heart rate 62, blood pressure 112/69, pulse ox 94% on room air. Patient did refuse before a.m. dose of Mucomyst 80 and that she thought it made her sick to her stomach. She is agreeable to continue at this time. GI would like her to complete full course of Mucomyst. We anticipate discharge to geriatric psych unit tomorrow. Social work has been updated. Repeat blood work reveals INR 1.1, potassium 3.2, chloride 113, CO2 19, BUN 20 creatinine 2.87. Total bilirubin 1.1, AST 374, ALT 568, alkaline phosphatase 151. WBC 11.8, hemoglobin 0.4, platelet count 184. 04/04: Patient is found sitting up in bed. She is in no acute distress. coil winder repair remains at the bedside. Physician certification has been completed. The patient has received a total of 9 doses of Mucomyst and has refused starting yesterday morning. Poison control was updated and okay to hold Mucomyst. Patient has had increase in liver function tests today and discharged to [facility] will be postponed until Wednesday. Patient is complaining of nausea and Zofran available. INR is 1.1. Potassium 3.2 and will be replaced, chloride 115, CO2 20. BUN 13 and creatinine 0.66. Total bilirubin 1.3, AST 503, ALT 718, alkaline phosphatase 259. 04/05: This morning, patient is complaining of shortness of breath. Chest x-ray showed early heart failure and one dose of Lasix and potassium ordered. Repeat lab work today reveals Patient has been afebrile, pulse ox 96% on 2 L nasal cannula, blood pressure 168/74, heart rate 68. Patient will be discharged to [facility] once all arrangements are completed. 04/06, patient does not feel well today, she does have lower abdominal pain, no right upper quadrant pain, no diarrhea, patient cannot relate to any dysuria, patient has pain all over, we started her on meloxicam 15 mg daily, patient cannot take Tylenol as she did have Tylenol overdoses with attempted overdose with [place], with elevation of liver function tests. Was awaiting transfer to [facility], most likely on Wednesday, transaminase is trending downward, INR is normal, status post Mucomyst treatment,, patient also has insomnia, melatonin is not waking patient was seen by psychiatry, patient continous to have limited insight, and he still severely depressed, patient is on Lexapro 10, no medication changes were made with psychiatry,, patient has safety council director at bedside. GI has cleared for discharge, with outpatient follow-up in [address] Miller urinalysis requested secondary to lower abdominal pain, supra pubic, doubt diverticular pathology 04/07, patient still has insomnia, despite melatonin 6, patient also has dyspepsia, requesting Tums, patient does not have any chest pain no palpitations, no diarrhea, no constipation, patient has better anxiety, does not have any new agitation, awaiting transfer to inpatient psychiatry, most likely in the morning. Urinalysis shows 8 WBC, lipase slightly elevated at 386 mild for pancreatitis, low-fat diet requested, transaminase is trending downward, with alkaline phosphatase of 262, ALT of 374, AST of 83, check, abdominal ultrasound for common bile duct obstruction 04/08: Patient evaluated today. She denies any shortness of breath, abdominal pain, nausea, vomiting, constipation or diarrhea. Sitter remains at the bedside. AST 54, ALT 271, alkaline phosphatase 215, lipase 435 , total bilirubin 0.6. Vital signs are stable, blood pressure 121/75, heart rate 60, afebrile 98.0, 96% on room air. Abdominal ultrasound showed no dilated ducts and small pleural effusion. Patient is cleared for discharge to geriatric psychiatric facility once arrangements are completed. Discharge diagnoses 1. Recurrent depression with suicide attempt. 2. Tylenol overdose with elevation in liver function tests. 3. History of acute ischemic CVA, stable. 4. Hypertension hypertensive cardiovascular disease. 5. Paroxysmal atrial fibrillation. 6. Gastroesophageal reflux disease. 7. COVID-19 infection not present. Attending physician: Armand Morales Consults: 03/31/20 18:26 Consult Physician Urgent Consulting Provider: Armand Reilly Consult Reason/Comments: Overdose Do you want consulting provider notified?: Yes 04/01/20 08:25 Consult Physician Routine Consulting Provider: Odalys Miller Consult Reason/Comments: Tylenol OD Do you want consulting provider notified?: Yes Primary care physician: Armand Andrew Patient Condition at Discharge: Good Plan - Discharge Summary Discharge Rx Participant: No New Discharge Prescriptions: New Escitalopram [Lexapro] 10 mg PO DAILY tab Melatonin 5 mg PO HS tablet Pantoprazole [Protonix] 40 mg PO AC-BRKFST tablet.dr Cullen Apixaban [Eliquis] 5 mg PO BID #60 tab amLODIPine [Norvasc] 5 mg PO DAILY #30 tab Lisinopril [Zestril] 10 mg PO BID #60 tab Metoprolol Tartrate [Lopressor] 50 mg PO BID Discontinued Pravastatin Sodium [Pravachol] 40 mg PO DAILY Discharge Medication List Apixaban [Eliquis] 5 mg PO BID #60 tab 10/23/19 [Rx] Lisinopril [Zestril] 10 mg PO BID #60 tab 10/23/19 [Rx] amLODIPine [Norvasc] 5 mg PO DAILY #30 tab 10/23/19 [Rx] Metoprolol Tartrate [Lopressor] 50 mg PO BID 03/31/20 [History] Escitalopram [Lexapro] 10 mg PO DAILY tab 04/04/20 [Rx] Melatonin 5 mg PO HS tablet 04/04/20 [Rx] Pantoprazole [Protonix] 40 mg PO AC-BRKFST tablet. 04/04/20 [Rx] Follow up Appointment(s)/Referral(s): Armand Morales MD [Primary Care Provider] - 1 Week (after discharge from [facility]) Odalys Miller MD [STAFF PHYSICIAN] - 2 Weeks
[2020-04-08] MEDS: MELATONIN 5 MG TABLET PO SCH (20:24)
[2020-04-08] MEDS ORDERED: clonazePAM 0.5 MG TAB PO STA (21:01)
[2020-04-09 04:24] VITALS: TEMP 98.5
[2020-04-09 08:05] LABS: ALT 229 U/L (4-34); AST 47 U/L (14-36); African American GFR (CKD) >90 (>60 ml/min/1.73 sqM); Albumin 3.1 g/dL (3.5-5.0); Alkaline Phosphatase 240 U/L (38-126); Anion Gap 5 mmol/L; Blood Urea Nitrogen 12 mg/dL (7-17); Calcium 9.6 mg/dL (8.4-10.2); Carbon Dioxide 29 mmol/L (22-30); Chloride 107 mmol/L (98-107); Glucose 93 mg/dL (74-99); Non-African American GFR(CKD) 88 (>60 ml/min/1.73 sqM); Potassium 3.7 mmol/L (3.5-5.1); Sodium 141 mmol/L (137-145); Total Bilirubin 0.7 mg/dL (0.2-1.3); Total Protein 5.9 g/dL (6.3-8.2)
[2020-04-09 08:40] LABS: HCT 35.9 % (34.0-46.0); HGB 11.2 gm/dL (11.4-16.0); Hypochromasia Slight; MCH 31.7 pg (25.0-35.0); MCHC 31.4 g/dL (31.0-37.0); MCV 100.9 fL (80.0-100.0); Macrocytosis Slight; Mean Platelet Volume 10.6; Platelet Count 255 k/uL (150-450); RBC 3.55 m/uL (3.80-5.40); RDW 14.6 % (11.5-15.5)
[2020-04-09 08:54] LABS: HCT 37.3 % (34.0-46.0); HGB 11.7 gm/dL (11.4-16.0); MCHC 31.4 g/dL (31.0-37.0); MCV 98.7 fL (80.0-100.0); Mean Platelet Volume 8.7; Platelet Count 275 k/uL (150-450); RBC 3.78 m/uL (3.80-5.40); RDW 14.3 % (11.5-15.5); WBC 9.1 k/uL (3.8-10.6)
[2020-04-09 08:58] LABS: ALT 239 U/L (4-34); AST 52 U/L (14-36); African American GFR (CKD) >90 (>60 ml/min/1.73 sqM); Albumin 3.3 g/dL (3.5-5.0); Alkaline Phosphatase 240 U/L (38-126); Anion Gap 6 mmol/L; Blood Urea Nitrogen 12 mg/dL (7-17); Calcium 9.8 mg/dL (8.4-10.2); Carbon Dioxide 27 mmol/L (22-30); Chloride 108 mmol/L (98-107); Glucose 101 mg/dL (74-99); Non-African American GFR(CKD) 89 (>60 ml/min/1.73 sqM); Sodium 141 mmol/L (137-145); Total Bilirubin 0.7 mg/dL (0.2-1.3); Total Protein 6.4 g/dL (6.3-8.2)
[2020-04-09 09:01] LABS: Prothrombin Time 10.3 sec (9.0-12.0)
[2020-04-09 10:56] LABS: Eosinophils # (M) 0.48 k/uL (0-0.7); Monocytes # (M) 0.72 k/uL (0-1.0); Neutrophils % (M) 60 %; Nucleated Red Blood Cells 0 /100 WBC (0-0); Total Cells Counted 100
[2020-04-09] MEDS: APIXABAN 5 MG TAB PO SCH (11:21)
[2020-04-09] MEDS: PANTOPRAZOLE 40 MG TABLET PO SCH (11:21)
[2020-04-09] MEDS: METOPROLOL TARTRATE 50 MG TAB PO SCH (11:22)
[2020-04-09] MEDS: LISINOPRIL 10 MG TAB PO SCH (11:22)
[2020-04-09] MEDS: amLODIPine 5 MG TAB PO SCH (11:22)
[2020-04-09] MEDS: ESCITALOPRAM 10 MG TAB PO SCH (11:23)
[2020-04-09] MEDS: LIDOCAINE 2% GEL 30 ML TUBE TOPICAL SCH (11:26)
[2020-04-09] MEDS: MELOXICAM 7.5 MG TAB PO SCH (11:27)
[2020-04-09] MEDS: MAG HYDROX/AL HYDROX/SIMETH 30 ML CUP PO SCH ×2 (11:28→13:34)
--- NOTE | 2020-04-09 11:47 | P.PN ---
Subjective This is a 74-year-old female one of Dr. Morales with a previous medical history significant for hypertension and hypertensive cardiovascular disease, hyperlipidemia, acute ischemic cerebral vascular accident in the distribution of the right middle cerebral artery with left-sided weakness status post tPA, with almost complete resolution of the symptoms in October 2019. During that hospitalization, she also developed new onset atrial fibrillation and started on eliquis. Patient states that she took pills. She took greater than 15 Tylenol tablets. She states she was hoping that she would fall asleep and not wake up. She states I can't take it anymore. At this time she states she was not suicidal but was yesterday. She called for help and was brought into the hospital for evaluation. Patient does state that her family abandoned her and took everything that she had. She does not have power of estate planning attorney or guardian. Vital signs were stable, EKG sinus rhythm. Sodium 141, potassium 3.9, chloride 109, CO2 19. Initial total bilirubin 0.3, AST 42, ALT 38, alkaline phosphatase 90. Salicylate level 8.6, acetaminophen level 169 serum alcohol level less than 10. Urine drug screen detected opiates, oxycodone, benzodiazepines. Urinalysis was clear with nitrate and leukoesterase negative. Patient was given 1 dose of Mucomyst and admitted to the [facility] floor. tub mender is at the bedside. Consult in place for psychiatry. Patient does have a history of divorce from her approximate 4 years ago and has not had a relationship with her children since that time. 04/02: The patient has been seen by psychiatry with recommendations for geriatric inpatient and social work is following for this. Patient is to be continued on safety person. Patient cannot leave AMA and will need a petition insert is attempting to leave AMA. Patient denies any new complaints today. She does have elevation of her liver function tests with total bilirubin 1, AST 547, ALT 543, alkaline phosphatase 82. Repeat acetaminophen level this morning is less than 10. Patient has also been seen by GI with plan to continue to monitor liver function tests including INR, continue oral Mucomyst which we have discontinued this morning due to Tylenol level being normal. Anticipate patient may be ready for discharge and [facility]. Patient has been afebrile, heart rate 59, blood pressure 96/56, pulse ox 95% on room air. 04/03: Patient remains with sitter at the bedside. She has been afebrile, heart rate 62, blood pressure 112/69, pulse ox 94% on room air. Patient did refuse before a.m. dose of Mucomyst 80 and that she thought it made her sick to her stomach. She is agreeable to continue at this time. GI would like her to complete full course of Mucomyst. We anticipate discharge to geriatric psych unit tomorrow. Social work has been updated. Repeat blood work reveals INR 1.1 , potassium 3.2, chloride 113, CO2 19, BUN 20 creatinine 2.87. Total bilirubin 1.1, AST 374, ALT 568, alkaline phosphatase 151. WBC 11.8, hemoglobin 0.4, platelet count 184. 04/04: Patient is found sitting up in bed. She is in no acute distress. tub mender remains at the bedside. Physician certification has been completed. The patient has received a total of 9 doses of Mucomyst and has refused starting yesterday morning. Poison control was updated and okay to hold Mucomyst. Patient has had increase in liver function tests today and discharged to [facility] will be postponed until Wednesday. Patient is complaining of nausea and Zofran available. INR is 1.1. Potassium 3.2 and will be replaced, chloride 115, CO2 20. BUN 13 and creatinine 0.66. Total bilirubin 1.3, AST 503, ALT 718, alkaline phosphatase 259. 04/05: This morning, patient is complaining of shortness of breath. Chest x-ray showed early heart failure and one dose of Lasix and potassium ordered. Repeat lab work today reveals Patient has been afebrile, pulse ox 96% on 2 L nasal cannula, blood pressure 168/74, heart rate 68. Patient will be discharged to [facility] [place] once all arrangements are completed. 04/06, patient does not feel well today, she does have lower abdominal pain, no right upper quadrant pain, no diarrhea, patient cannot relate to any dysuria, patient has pain all over, we started her on meloxicam 15 mg daily, patient cannot take Tylenol as she did have Tylenol overdoses with attempted overdose with [place], with elevation of liver function tests. Was awaiting transfer to [facility], most likely on Wednesday, transaminase is trending downward, INR is normal, status post Mucomyst treatment,, patient also has insomnia, melatonin is not waking patient was seen by psychiatry, patient continous to have limited insight, and he still severely depressed, patient is on Lexapro 10, no medication changes were made with psychiatry,, patient has safety person at bedside. GI has cleared for discharge, with outpatient follow-up in [address] Miller urinalysis requested secondary to lower abdominal pain, suprapubic, doubt diverticular pathology, 628, patient still has insomnia, despite melatonin 6, patient also has dyspepsia, requesting Tums, patient does not have any chest pain no palpitations, no diarrhea, no constipation, patient has better anxiety, does not have any new agitation, awaiting transfer to inpatient psychiatry, most likely in the morning. Urinalysis shows 8 WBC, lipase slightly elevated at 386 mild for pancreatitis, low-fat diet requested, transaminase is trending downward, with alkaline phosphatase of 262, ALT of 374, AST of 83, check, abdominal ultrasound for common bile duct obstruction 04/08: Patient evaluated today. She denies any shortness of breath, abdominal pain, nausea, vomiting, constipation or diarrhea. Sitter remains at the bedside. AST 54, ALT 271, alkaline phosphatase 215, lipase 435 , total bilirubin 0.6. Vital signs are stable, blood pressure 121/75, heart rate 60, afebrile 98.0, 96% on room air. Abdominal ultrasound showed no dilated ducts and small pleural effusion. Patient is cleared for discharge to geriatric psychiatric facility once arrangements are completed. 04/09: Patient was evaluated today on morning rounds. Liver enzymes continue to trend down AST 52, ALT to 239, alk phos 240. Patient is stable denies any complaints of abdominal pain, nausea, vomiting, constipation, diarrhea. Patient is tolerating by mouth food and fluids. Patient will be discharged to geriatric psychiatric facility hopefully today. Objective - Vital Signs Vital signs: Vital Signs Temp 98.5 F 04/09/20 04:21 Pulse 56 L 04/09/20 08:10 Resp 16 04/09/20 08:10 BP 135/65 04/09/20 04:21 Pulse Ox 93 L 04/09/20 04:21 Intake & Output 04/08/20 04/09/20 04/09/20 18:59 06:59 18:59 Intake Total 300 Balance 300 Weight 82 kg Intake: Oral 300 Other: Voiding Method Toilet Toilet # Voids 3 1 # Bowel Movements 0 - Exam - Constitutional General appearance: Present: cooperative, no acute distress - EENT Eyes: Present: EOMI, PERRLA, dentition normal ENT: Present: NA/AT - Neck Neck: Present: normal ROM Thyroid: negative: nodule - Respiratory Respiratory: bilateral: CTA, negative: diminished, dullness, rales, rhonchi, wheezing - Cardiovascular Rhythm: regular Heart sounds: normal: S1 Abnormal Heart Sounds: Absent: systolic murmur, diastolic murmur, rub, S3 Gallop, S4 Gallop, click, other - Integumentary Integumentary: Present: normal - Neurologic Neurologic: Present: CNII-XII intact - Musculoskeletal Musculoskeletal: Present: gait normal, strength equal bilaterally - Psychiatric Psychiatric: Present: A&O x's 3, appropriate affect - Labs CBC & Chem 7: 04/09/20 08:24 04/09/20 08:24 Labs: Abnormal Lab Results - Last 24 Hours (Table) 04/09/20 04/09/20 04/09/20 Range/Units 07:00 07:00 08:24 RBC 3.55 L 3.78 L (3.80-5.40) m/uL Hgb 11.2 L (11.4-16.0) gm/dL MCV 100.9 H (80.0-100.0) fL Chloride (98-107) mmol/L Glucose (74-99) mg/dL AST 47 H (14-36) U/L ALT 229 H (4-34) U/L Alkaline Phosphatase 240 H (38-126) U/L Total Protein 5.9 L (6.3-8.2) g/dL Albumin 3.1 L (3.5-5.0) g/dL 04/09/20 Range/Units 08:24 RBC (3.80-5.40) m/uL Hgb (11.4-16.0) gm/dL MCV (80.0-100.0) fL Chloride 108 H (98-107) mmol/L Glucose 101 H (74-99) mg/dL AST 52 H (14-36) U/L ALT 239 H (4-34) U/L Alkaline Phosphatase 240 H (38-126) U/L Total Protein (6.3-8.2) g/dL Albumin 3.3 L (3.5-5.0) g/dL Microbiology - Last 24 Hours (Table) 04/06/20 14:45 Urine Culture - Final Urine,Voided Escherichia coli Assessment and Plan Plan: 1. Recurrent depression with suicide attempt. Continue safety person, psychiatry consult appreciated, social work consult for discharge planning to geriatric psych center. 2. Tylenol overdose with elevation in liver function tests. Liver enzymes trending downward. 3. History of acute ischemic CVA, stable. Continue eliquis. 4. Hypertension hypertensive cardiovascular disease. Continue Lopressor 50 mg twice daily, lisinopril 10 mg twice daily, Norvasc 5 mg daily. 5. Paroxysmal atrial fibrillation. Continue eliquis 5 mg twice daily, Lopressor 50 mg twice daily. 6. Polyarthralgia, uncontrolled, lidocaine on specific localized pain sites. 6. Gastroesophageal reflux disease. Continue Protonix. 7. Elevated lipase with dyspepsia, mild pancreatitis. 8. COVID-19 infection not present.
[2020-04-09 13:02] VITALS: BP 147/81; PULSE 60; RESP 17
--- NOTE | 2020-04-09 13:37 | P.PN ---
Progress Note - Text Progress Note Date: 04/09/20 Interval History: Patient was seen today for psychiatric follow-up related to her depression and suicide attempt. Patient was laying in her bed with the sitter at her side and was directable and agreeable to speak to automobile and property underwriter today. Patient spoke about her suicide attempt and states that "it was a big mistake" and also spoke about her reasons why she wants to live at this point and mainly spoke about her family and grandchildren. She states that she missed handled the situation it was mainly related to her finances. She spoke about God and her yazdanism beliefs related to suicide and how they will are not tolerated. She claims that her mood has been gradually improving on the medications and states that she has no thoughts of suicide at this time. She states that she would be able to follow- up with her outpatient provider when she leaves the hospital and claims that she is agreeable to take her medications as prescribed. She admits to improved appetite. At this time patient denies any suicidal or homical ideations, intent or plan. Patient denies any auditory, visual hallucinations and denies any paranoia or delusions. Patient denies any side effects from the medications and has been compliant with meds. Mental Status Exam: General Appearance: Patient appears to be stated age is alert, more cooperative today. Patient appears to have fair hygiene and grooming wearing hospital gown with improving eye contact. Behavior: Patient is calmly lying in bed without any agitated behavior. More cooperative today. Speech: Patient's speech is fluent and nonpressured. Soft tone. Mood/Affect: Patient reports their mood is "good", affect is congruent and euthymic. Suicidality/Homicidality: Patient denies having any suicidal or homicidal ideation intent or plan. Perceptions: Patient denies any visual hallucinations and denies any auditory hallucinations Though content/process: There is no evidence of any delusional thought content and thought process is linear and goal-directed. More future oriented today. Memory and concentration: AOX3, grossly intact for the purposes of this session Judgment and insight: improving. Assessment Major depressive disorder, without psychotic features Anxiety disorder unspecified Plan: -Would recommend the following medication changes/additions: Continue with Lexapro 10 mg daily for mood/anxiety, continue with melatonin 10 mg nightly for sleep. -Patient LFTs continue to be fluctuating however have been gradually improving. GI recommendations appreciated. -Can discontinue 1:1 sitter at this time. -At this time patient is cleared from a psychiatric standpoint after she has received several days of antidepressant medications and appears to have improved significantly with regard to her mood anxiety and also insight towards what happened with her suicide attempt at home. Patient is agreeable to continue to follow-up with her outpatient doctor. Patient would benefit from individual therapy and also psychiatric outpatient care which will need to be arranged for prior to discharge. -Psychiatry will sign off at this time. Please contact with any questions. Discussed this plan with patient's nurse.
--- NOTE | 2020-04-09 23:14 | P.PN ---
Subjective Progress Note Date: 04/08/20 Principal diagnosis: Acetaminophen toxicity, elevated liver enzymes Patient is seen lying in bed denying any abdominal pain. Tolerating diet. Awaiting placement at the geriatric psychiatric unit. Objective - Vital Signs Vital signs: Vital Signs Temp 97.4 F L 04/08/20 12:41 Pulse 52 L 04/08/20 12:41 Resp 16 04/08/20 12:41 BP 124/68 04/08/20 12:41 Pulse Ox 97 04/08/20 12:41 Intake & Output 04/07/20 04/08/20 04/08/20 18:59 06:59 18:59 Other: Voiding Method Toilet Toilet # Voids 2 0 1 # Bowel Movements 0 - Exam On physical examination, patient appears comfortable in no apparent distress. HEAD: Normocephalic, atraumatic. EYES: No scleral icterus. No conjunctival injection. MOUTH: No lesions, tongue midline. NECK: Trachea midline, no gross abnormalities. ABDOMEN: Soft, obese. Bowel sounds are positive. No organomegaly. No guarding or rigidity. EXTREMITIES: No pedal edema. SKIN: No rashes, no jaundice. NEUROLOGIC: Alert and oriented x3. No focal deficits. - Labs CBC & Chem 7: 04/09/20 08:24 04/09/20 08:24 Labs: Abnormal Lab Results - Last 24 Hours (Table) 04/08/20 04/08/20 Range/Units 06:44 06:44 RBC 3.21 L (3.80-5.40) m/uL Hgb 10.4 L (11.4-16.0) gm/dL Hct 32.3 L (34.0-46.0) % MCV 100.7 H (80.0-100.0) fL Chloride 111 H (98-107) mmol/L Glucose 109 H (74-99) mg/dL AST 54 H (14-36) U/L ALT 271 H (4-34) U/L Alkaline Phosphatase 215 H (38-126) U/L Total Protein 5.4 L (6.3-8.2) g/dL Albumin 2.7 L (3.5-5.0) g/dL Lipase 435 H (23-300) U/L Microbiology - Last 24 Hours (Table) 04/06/20 14:45 Urine Culture - Preliminary Urine,Voided Gram Neg Bacilli Assessment and Plan (1) Elevated liver enzymes Narrative/Plan: 74-year-old female admitted for acetaminophen overdose with findings of elevated liver enzymes. No evidence of encephalopathy or elevation in INR do suggest liver failure at this time. Liver enzymes are trending down. Status: Acute Code(s): R74.8 - ABNORMAL LEVELS OF OTHER SERUM ENZYMES SNOMED Code(s): 375481238 (2) Acetaminophen overdose Status: Acute Code(s): T39.1X1A - POISONING BY 4-AMINOPHENOL DERIVATIVES, ACCIDENTAL, INIT SNOMED Code(s): 126572068 Plan: Supportive care Okay for diet Continue to monitor CBC, BMP, LFTs and INR No evidence of encephalopathy Okay for discharge when otherwise medically stable Thank you for allowing us to participate in the care of the patient
--- NOTE | 2020-04-11 08:44 | CDI ---
Documentation Clarification Form Date: 04/11/2020 08:29:15 AM From: Neema Peña Phone: To: Neema Peña If you have a question about this query, please contact [facility] [employer] at [phone] between 8am and 5pm. Admit Date: 03/31/2020 06:25:00 PM Patient Name: Ros Palumbo Visit Number: [id number] Discharge Date: 04/09/2020 06:28:00 PM ATTENTION: The Clinical Documentation Specialists (CDI) and [facility] Coding Staff appreciate your assistance in clarifying documentation. Please respond to the clarification below the line at the bottom and electronically sign. The CDI & [facility] Coding staff will review the response and follow-up if needed. Please note: Queries are made part of the Legal Health Record. If you have any questions, please contact the author of this message via ITS. Dr. Armand Morales PN 04/09 documents "lipase slightly elevated at 368 mild for Pancreatitis Please clarify if patient had pancreatitis, if so its acuity Patient history/risk factors: Overdose on Tylenol , hepatitis due to tylenol OD Clinical Indicators: lipase 368 Radiology: Labs: alk phos 262 ALT 374 AST 83 Vital Signs: 97.9 F, 74 bpm, 20 123/58 95 RA Treatment: low fat diet requested In your professional opinion, does this patient have pancreatitis and if so the acuity or was it ruled out. Pancreatitis Acute Pancreatitis Pancreatitis ruled out Acuity Acute Acute on Chronic Chronic Xx Other, please specify _Secondary to Hepatic reaction to Acetaminophen Toxicity___ Unable to determine MTDD
== END 2020-04-09 18:28 | disposition home or self-care (01) | DRG 917 ==
LOC: EC 16:24 → 5NMEDONC 18:25
PROVIDERS: ADMIT Internal Medicine Geriatric Medicine; ATTEND Internal Medicine Geriatric Medicine
DX: T39.1X2A Poisoning by 4-Aminophenol derivatives, intentional self-harm, initial encounter (principal); I50.31 Acute diastolic (congestive) heart failure; F33.9 Major depressive disorder, recurrent, unspecified; Z86.73 Personal history of transient ischemic attack (TIA), and cerebral infarction without residual deficits; Z11.59 Encounter for screening for other viral diseases; I11.0 Hypertensive heart disease with heart failure; K71.2 Toxic liver disease with acute hepatitis; E66.9 Obesity, unspecified; E78.5 Hyperlipidemia, unspecified; F41.9 Anxiety disorder, unspecified; G47.00 Insomnia, unspecified; I48.0 Paroxysmal atrial fibrillation; K21.9 Gastro-esophageal reflux disease without esophagitis; Z79.01 Long term (current) use of anticoagulants; Z79.899 Other long term (current) drug therapy; Z82.49 Family history of ischemic heart disease and other diseases of the circulatory system; Z63.5 Disruption of family by separation and divorce; Z96.653 Presence of artificial knee joint, bilateral; Z82.61 Family history of arthritis; Z60.2 Problems related to living alone; Z68.33 Body mass index [BMI] 33.0-33.9, adult
CPT/HCPCS: 36415; 71045; 76700; 80048; 80053; 80306; 80320; 80329; 81001; 82075; 82247; 83520; 83690; 83735; 84075; 84450; 84460; 85025; 85027; 85610; 85730; 87077; 87086; 87186; 93005; 99291

== ENCOUNTER → 2020-05-13 | Outpatient (CLI) | payer MEDICARE, BC ==
[2020-05-13 08:18] LABS: Basophils # (A) 0.1 k/uL (0-0.2); Basophils % (A) 1 %; Eosinophils # (A) 0.3 k/uL (0-0.7); Eosinophils % (A) 4 %; HCT 44.3 % (34.0-46.0); HGB 14.1 gm/dL (11.4-16.0); Lymphocytes # (A) 1.5 k/uL (1.0-4.8); Lymphocytes % (A) 17 %; MCH 31.1 pg (25.0-35.0); MCHC 31.9 g/dL (31.0-37.0); MCV 97.4 fL (80.0-100.0); Mean Platelet Volume 9.6; Monocytes # (A) 0.6 k/uL (0-1.0); Monocytes % (A) 7 %; Neutrophils # (A) 6.2 k/uL (1.3-7.7); Neutrophils % (A) 71 %; Platelet Count 242 k/uL (150-450); RBC 4.55 m/uL (3.80-5.40); RDW 13.4 % (11.5-15.5); WBC 8.7 k/uL (3.8-10.6)
[2020-05-13 17:19] LABS: African American GFR (CKD) 64.7 (60.0-200.0); Albumin 4.2 g/dL (3.80-4.90); Anion Gap 8.5 mmol/L (4.00-12.00); Calcium 10.5 mg/dL (8.7-10.3); Carbon Dioxide 26.5 mmol/L (21.6-31.8); Non-African American GFR(CKD) 55.8 (60.0-200.0); Potassium 3.7 mmol/L (3.5-5.5); Total Protein 6.6 g/dL (6.2-8.2)
[2020-05-13 17:20] LABS: Albumin/Globulin Ratio 1.75 (1.60-3.17); Globulin 2.4 g/dL (1.6-3.3); Total Bilirubin 0.6 mg/dL (0.3-1.2)
== END | disposition home or self-care (01) ==
LOC: LABWHC1 07:00
PROVIDERS: ATTEND Internal Medicine Geriatric Medicine
DX: T39.1X Poisoning by, adverse effect of and underdosing of 4-Aminophenol derivatives (principal)
CPT/HCPCS: 36415; 80053; 85025